=== PATIENT | female | born 1965 | race Caucasian/White ===

== ENCOUNTER 2023-10-21 13:01 | Emergency (ER) | payer BC, SELFPAY ==
[2023-10-21] VITALS (7 sets, daily range): BP systolic 111–127; BP diastolic 77–89; BMI 22.0
[2023-10-21 14:01] LABS: % Basophils 0.7 % (0-2); % Eosinophils 2.4 % (0-6); % Lymphocytes 32.7 % (20.5-51.1); % Monocytes 7.4 % (1.7-9.3); % Neutrophils 56.8 % (42.2-75.2); Absolute Eosinophils 0.1 10^3/uL (0-0.7); Absolute Lymphocytes 1.4 10^3/uL (1.2-3.4); Absolute Monocytes 0.3 10^3/uL (0.1-0.6); Absolute Neutrophils 2.4 10^3/uL (1.4-6.5); Hematocrit 38.8 % (37.0-47.0); Hemoglobin 13.2 g/dL (12.0-16.0); Mean Corpuscular Hgb 31.1 pg (27.0-31.0); Mean Corpuscular Volume 91.5 fL (81.0-99.0); Mean Platelet Volume 11.1 fL (7.4-10.4); Nucleated Red Blood Cells % 0 %; Platelet Count 243 10^3/uL (130-400); Red Blood Cell Count 4.24 10^6/uL (4.20-5.40); Red Cell Dist. Width 12.2 % (11.5-14.5); White Blood Cell Count 4.2 10^3/uL (4.8-10.8)
--- NOTE | 2023-10-21 14:07 | ED.GENMED ---
History of Present Illness
General
Chief Complaint: Dizziness
Source: patient
Time Seen by Provider: 10/21/23 13:58
Travel History
Have you had any contact with someone who has COVID-19?: No
Do you have any symptoms of coronavirus? Fever > 100 degrees, chills, cough, shortness of breath, sore throat, loss of taste or smell, muscle aches, or headache?: No
History of Present Illness
History of Present Illness:
49-year-old female presents to the emergency room complaining of an exacerbation of her vertigo. 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 Patient states that she has sought advice from multiple [facility] centers for her symptoms and has participated in clinical trials but has not found a solution to her problem. She typically treats her symptoms with Nurtec, oral Valium, magnesium but has not had adequate improvement in her
symptoms. She currently rates her symptoms out of 10. She feels a sense of movement that is not worse with change in head position. She denies actual headache. When she had exacerbation such as this in the past IV Valium and Benadryl has helped.
Past History
Past History
ED Past Medical History: Other (Vestibular migraines, GERD)
ED Past Surgical History: None
Patient has exhibited threatening behavior?: No
Social History
Tobacco: Non-smoker
Alcohol: Occasional
Drug: None
Personal:
Employment: Employed
Family History
Family History: Other
Phy Exam
Physical Exam
Physical Exam:
General: Awake, Alert, Oriented X3. No acute distress.
Vitals: unremarkable
Head: Atraumatic
Eyes: Pupils equal, EOMI
Throat: Airway intact, no exudates
Neck: Trachea midline
Lungs: Clear and equal b/l
Heart: Regular rate, no murmurs
Abd: Soft, Nontender, No pulsatile mass
Neuro: Nonfocal
Skin: Warm, dry, no rash
Extremities: pulses equal b/l, no edema
Course
Orders/Labs/Results
Orders:
Orders
10/21/23 13:48
CMP [Comprehensive Metabolic Panel] Urgent
Complete Blood Count/With Diff Urgent
10/21/23 14:04
Diphenhydramine [Benadryl] 25 mg IV NOW STA
diazePAM [Valium Injection] 5 mg IV NOW STA
10/21/23 14:18
0.9% Sodium Chloride 1000 ml [Nss] 1,000 ml IV BOLUS
Ketorolac [Toradol] 30 mg IV NOW STA
10/21/23 16:17
diazePAM [Valium Injection] 2 mg IV NOW STA
10/21/23 18:00
Diphenhydramine [Benadryl] 25 mg IV NOW STA
Prochlorperazine [Compazine] 10 mg IV NOW STA
Abnormal Lab Results
10/21/23
13:48
WBC 4.2 L 10^3/uL
(4.8-10.8)
MCH 31.1 H pg
(27.0-31.0)
MPV 11.1 H fL
(7.4-10.4)
BUN 18 H mg/dl
(7-17)
10/21/23 13:48
10/21/23 13:48
Vital Signs
Initial and Last Documented VS:
Initial Vital Signs
Temp Pulse Resp BP Pulse Ox
98.3 F 77 20 127/81 99
10/21/23 13:02 10/21/23 13:02 10/21/23 13:02 10/21/23 13:02 10/21/23 13:02
Last Documented Vital Signs
Temp Pulse Resp BP Pulse Ox
98.3 F 60 17 117/88 97
10/21/23 13:02 10/21/23 17:15 10/21/23 17:15 10/21/23 17:00 10/21/23 17:15
MDM/Problems Addressed
Differential Diagnosis Includes:
BPH, subarachnoid hemorrhage, labyrinthitis,
MDM/Problems Addressed:
Patient presents with headache, vertigo, subjective difficulty speaking. CT here shows no acute abnormalities. CT angiogram is essentially normal. Patient has labs which are reassuring. Patient treated with Valium for potential peripheral
vertigo. He felt much better. He is ambulatory and feels like he is speaking normally. He continues to have a mild headache but given his normal imaging I think this is likely more of a tension headache. Patient now stable for discharge home.
He will follow-up with ENT and physical therapy for vestibular therapy.
*Radiology
Radiology exam reviewed: radiology read reviewed
*Pulse Oximetry
Patient hypoxic: no
*Critical Care Note
Total Time (30-74mins, 75-104mins- exclusive of procedures): Not Applicable
ED Attending Note
-
Portions of this chart may have been created with voice recognition software.� Occasional wrong word or��sound alike� substitutions may have occurred due to the inherent limitations of voice recognition software.
Discharge Plan
Departure
Prescriptions:
No Action
diazepam 5 MG tablet
5 mg PO Q6HPRN PRN (Reason: vertigo)
Rx Instructions:
04/10/2023, patient filled this medication on 03/10/2023 for 100 tablets according to PDMP.
acetaminophen [Tylenol] 325 mg Tablet
975 mg PO DAILYPRN PRN (Reason: mild pain)
calcium carbonate [Calcium 600] 600 mg calcium (1,500 mg) Tablet
600 mg PO DAILY
ibuprofen [Advil] 200 mg Tablet
400 mg PO BIDPRN PRN (Reason: mild pain)
Hold Instructions: Resume on 04/30/23. until toradol finishes
vitamin B complex Tablet
1 tab PO DAILY
bisacodyl [Dulcolax (bisacodyl)] 5 mg Tablet,Delayed Release (Dr/Ec)
5 mg PO DAILYPRN PRN (Reason: constipation)
cholecalciferol (vitamin D3) 25 mcg (1,000 unit) Tablet
25 mcg PO DAILY
magnesium glycinate 100 mg Tablet
100 mg PO HS
omega 2-wpg-oee-fish oil [Fish Oil] 1,000 mg (120 mg-180 mg) Capsule
1 cap PO DAILY
coQ10 (ubiquinol) 100 mg Capsule
100 mg PO DAILY
Nurtec ODT 75 mg Tablet,Disintegrating
75 mg PO DAILY PRN (Reason: Pain) Qty: 0 0RF
prochlorperazine maleate [Compazine] 10 mg tablet
10 mg PO Q8H PRN (Reason: headache, nausea, vomiting) 7 Days Qty: 21 0RF
diphenhydramine HCl [Benadryl] 25 mg capsule
25 mg PO TID PRN (Reason: mod to severe headache, nausea) Qty: 21 0RF
ketorolac 10 mg tablet
10 mg PO TID PRN (Reason: moderate to severe headache) 5 Days Qty: 20 0RF
Rx Instructions:
hold ibuprofen or nsaids when taking this medication
Referrals:
Roma Sue CRNP [Family Provider] -
Interventions
Interventions:
*Risk Screen - Suicide Last Done: 10/21/23 13:02
*General Assessment Last Done: 10/21/23 13:02
*Neglect/Abuse Screening Last Done: 10/21/23 13:02
ED- Fall Risk Assessment Last Done: 10/21/23 15:00
*ED COVID-19 Vaccine History Last Done: 10/21/23 13:38
ED- Neurological Assessment Last Done: 10/21/23 15:00
ED- Cardiac Assessment Last Done: 10/21/23 15:01
ED Swallowing Screen Last Done: 10/21/23 16:25
Discharge Date and Time
Print Language: WOLOF
[2023-10-21] MEDS: VALIUM INJECTION 5 MG IV (14:10)
[2023-10-21] MEDS: BENADRYL 25 MG IV ×2 (14:10→18:25)
[2023-10-21 14:19] LABS: ALT (SGPT) 14 U/L (0-35); AST (SGOT) 26 U/L (14-36); Albumin 4.4 g/dl (3.5-5.0); Alkaline Phosphatase 55 U/L (38-126); Blood Urea Nitrogen 18 mg/dl (7-17); Calcium 9.8 mg/dl (8.4-10.2); Carbon Dioxide 28 mmol/L (22-30); Chloride 105 mmol/L (98-107); Estimated Creatinine Clearance 76 ml/min; Glucose 95 mg/dl (70-99); Sodium 138 mmol/L (135-145); Total Bilirubin 0.6 mg/dl (0.2-1.3); Total Protein 6.9 g/dl (6.3-8.2); eGFR > 60.00
[2023-10-21] MEDS: NSS 1000 IV (14:20)
[2023-10-21] MEDS: TORADOL 30 MG IV (14:21)
[2023-10-21] MEDS: VALIUM INJECTION 2 MG IV (16:29)
[2023-10-21] MEDS: COMPAZINE 10 MG IV (18:25)
--- NOTE | 2023-10-21 19:27 | ED.GENMED ---
History of Present Illness
General
Chief Complaint: Dizziness
Time Seen by Provider: 10/21/23 13:58
Travel History
Have you had any contact with someone who has COVID-19?: No
Do you have any symptoms of coronavirus? Fever > 100 degrees, chills, cough, shortness of breath, sore throat, loss of taste or smell, muscle aches, or headache?: No
Past History
Past History
ED Past Medical History: Other (Vestibular migraines, GERD)
ED Past Surgical History: None
Patient has exhibited threatening behavior?: No
Social History
Tobacco: Non-smoker
Alcohol: Occasional
Drug: None
Personal:
Employment: Employed
Family History
Family History: Other
Course
Orders/Labs/Results
Orders:
Orders
10/21/23 13:48
CMP [Comprehensive Metabolic Panel] Urgent
Complete Blood Count/With Diff Urgent
10/21/23 14:04
Diphenhydramine [Benadryl] 25 mg IV NOW STA
diazePAM [Valium Injection] 5 mg IV NOW STA
10/21/23 14:18
0.9% Sodium Chloride 1000 ml [Nss] 1,000 ml IV BOLUS
Ketorolac [Toradol] 30 mg IV NOW STA
10/21/23 16:17
diazePAM [Valium Injection] 2 mg IV NOW STA
10/21/23 18:00
Diphenhydramine [Benadryl] 25 mg IV NOW STA
Prochlorperazine [Compazine] 10 mg IV NOW STA
Abnormal Lab Results
10/21/23
13:48
WBC 4.2 L 10^3/uL
(4.8-10.8)
MCH 31.1 H pg
(27.0-31.0)
MPV 11.1 H fL
(7.4-10.4)
BUN 18 H mg/dl
(7-17)
10/21/23 13:48
10/21/23 13:48
Vital Signs
Initial and Last Documented VS:
Initial Vital Signs
Temp Pulse Resp BP Pulse Ox
98.3 F 77 20 127/81 99
10/21/23 13:02 10/21/23 13:02 10/21/23 13:02 10/21/23 13:02 10/21/23 13:02
Last Documented Vital Signs
Temp Pulse Resp BP Pulse Ox
98.3 F 60 17 117/88 97
10/21/23 13:02 10/21/23 17:15 10/21/23 17:15 10/21/23 17:00 10/21/23 17:15
ED Attending Note
-
Portions of this chart may have been created with voice recognition software.� Occasional wrong word or��sound alike� substitutions may have occurred due to the inherent limitations of voice recognition software.
Discharge Plan
Departure
Patient Disposition: Home (Routine Discharge)
Date of Disposition: 10/21/23
Time of Disposition: 19:27
Patient with high blood pressure during this ER visit?: No
Condition: Good
Discharge Problem:
Mal de debarquement
Instructions: Vertigo (a Type of Dizziness) (DC), BLOOD PRESSURE
Prescriptions:
No Action
diazepam 5 MG tablet
5 mg PO Q6HPRN PRN (Reason: vertigo)
Rx Instructions:
04/10/2023, patient filled this medication on 03/10/2023 for 100 tablets according to PDMP.
acetaminophen [Tylenol] 325 mg Tablet
975 mg PO DAILYPRN PRN (Reason: mild pain)
calcium carbonate [Calcium 600] 600 mg calcium (1,500 mg) Tablet
600 mg PO DAILY
ibuprofen [Advil] 200 mg Tablet
400 mg PO BIDPRN PRN (Reason: mild pain)
Hold Instructions: Resume on 04/30/23. until toradol finishes
vitamin B complex Tablet
1 tab PO DAILY
bisacodyl [Dulcolax (bisacodyl)] 5 mg Tablet,Delayed Release (Dr/Ec)
5 mg PO DAILYPRN PRN (Reason: constipation)
cholecalciferol (vitamin D3) 25 mcg (1,000 unit) Tablet
25 mcg PO DAILY
magnesium glycinate 100 mg Tablet
100 mg PO HS
omega 4-ejv-wdm-fish oil [Fish Oil] 1,000 mg (120 mg-180 mg) Capsule
1 cap PO DAILY
coQ10 (ubiquinol) 100 mg Capsule
100 mg PO DAILY
Nurtec ODT 75 mg Tablet,Disintegrating
75 mg PO DAILY PRN (Reason: Pain) Qty: 0 0RF
prochlorperazine maleate [Compazine] 10 mg tablet
10 mg PO Q8H PRN (Reason: headache, nausea, vomiting) 7 Days Qty: 21 0RF
diphenhydramine HCl [Benadryl] 25 mg capsule
25 mg PO TID PRN (Reason: mod to severe headache, nausea) Qty: 21 0RF
ketorolac 10 mg tablet
10 mg PO TID PRN (Reason: moderate to severe headache) 5 Days Qty: 20 0RF
Rx Instructions:
hold ibuprofen or nsaids when taking this medication
Referrals:
Roma Sue CRNP [Family Provider] -
Interventions
Interventions:
*Risk Screen - Suicide Last Done: 10/21/23 13:02
*General Assessment Last Done: 10/21/23 13:02
*Neglect/Abuse Screening Last Done: 10/21/23 13:02
ED- Fall Risk Assessment Last Done: 10/21/23 15:00
*ED COVID-19 Vaccine History Last Done: 10/21/23 13:38
ED- Neurological Assessment Last Done: 10/21/23 15:00
ED- Cardiac Assessment Last Done: 10/21/23 15:01
ED Swallowing Screen Last Done: 10/21/23 16:25
Discharge Date and Time
Print Language: LITHUANIAN
== END 2023-10-21 19:41 | disposition home or self-care (01) ==
LOC: EMR 13:01
PROVIDERS: EMERGENCY PHYSICIAN Emergency Medicine; FAMILY PHYSICIAN Nurse Practitioner
DX: R42 Dizziness and giddiness (principal)
CPT/HCPCS: 99284; 96374; 96375 ×3; 96376 ×2; 96361; 80053; 85025

== ENCOUNTER → 2024-02-23 15:33 | Outpatient (REF) | payer BC, SELFPAY | LOC: HWRAD 15:33 | PROVIDERS: ATTENDING PHYSICIAN Otolaryngology Otolaryngology/Facial Plastic Surgery; FAMILY PHYSICIAN Nurse Practitioner | DX: J32.9 Chronic sinusitis, unspecified (principal) | CPT/HCPCS: 70486 ==

== ENCOUNTER → 2024-04-15 17:51 | Outpatient (REF) | payer BC, SELFPAY | LOC: WDC 17:51 | PROVIDERS: ATTENDING PHYSICIAN Nurse Practitioner; FAMILY PHYSICIAN Nurse Practitioner Gerontology | DX: Z12.31 Encounter for screening mammogram for malignant neoplasm of breast (principal) | CPT/HCPCS: 77063; 77067 ==

== ENCOUNTER 2024-05-11 11:07 | Emergency (ER) | payer BC, SELFPAY ==
[2024-05-11 11:14] VITALS: BP 146/84
[2024-05-11 11:37] LABS: % Basophils 0.5 % (0-2); % Eosinophils 2.2 % (0-6); % Immature Granulocytes 0.3 % (0-0.5); % Monocytes 6.5 % (1.7-9.3); % Neutrophils 61.5 % (42.2-75.2); Absolute Eosinophils 0.1 10^3/uL (0-0.7); Absolute Lymphocytes 1.7 10^3/uL (1.2-3.4); Absolute Monocytes 0.4 10^3/uL (0.1-0.6); Absolute Neutrophils 3.7 10^3/uL (1.4-6.5); Hematocrit 41.9 % (37.0-47.0); Hemoglobin 13.9 g/dL (12.0-16.0); Mean Corp Hgb Conc. 33.2 g/dL (33.0-37.0); Mean Corpuscular Volume 93.5 fL (81.0-99.0); Mean Platelet Volume 10.4 fL (7.4-10.4); Nucleated Red Blood Cells % 0 %; Platelet Count 277 10^3/uL (130-400); Red Blood Cell Count 4.48 10^6/uL (4.20-5.40); Red Cell Dist. Width 11.8 % (11.5-14.5)
[2024-05-11 11:47] LABS: ALT (SGPT) 15 U/L (0-35); AST (SGOT) 29 U/L (14-36); Albumin 4.5 g/dl (3.5-5.0); Alkaline Phosphatase 63 U/L (38-126); Blood Urea Nitrogen 14 mg/dl (7-17); Calcium 9.6 mg/dl (8.4-10.2); Carbon Dioxide 32 mmol/L (22-30); Chloride 101 mmol/L (98-107); Glucose 100 mg/dl (70-99); Potassium 4.6 mmol/L (3.5-5.1); Sodium 138 mmol/L (135-145); Total Bilirubin 0.6 mg/dl (0.2-1.3); eGFR > 60.00
[2024-05-11 11:55] LABS: COVID-19 Antigen Negative (Negative)
[2024-05-11 11:57] LABS: Troponin I 0.014 ng/ml
[2024-05-11 13:18] VITALS: BP 137/82
--- NOTE | 2024-05-11 14:08 | ED.GENMED ---
History of Present Illness
<Eva Damian PA-C - Last Filed: 05/11/24 19:04>
General
Chief Complaint: Chest Pain
Source: patient
Exam Limitations: none
Time Seen by Provider: 05/11/24 13:33
Nursing documentation reviewed up to this point in time: agreed with
History of Present Illness
History of Present Illness:
58-year-old female with a past medical history of migraines, GERD, presents emergency department today with concerns of chest pain. Patient states that she has been having intermittent chest pain for the past 4 days. She has had upper respiratory
symptoms associated with this. Patient states that she had been seen by [facility] for her sore throat and generalized URI symptoms and was told it was a viral infection. Patient states that she started develop a lot of coughing and started
develop chest pain after that, patient states that she believes that the chest pain may be related to all the coughing she has been doing and went to make sure she has not any pneumonia. Patient states that she has not been coughing up mucus,
denies any hemoptysis. Patient denies any recent long distance travel, any swelling in her legs. Patient states that she does have a history of acid reflux and states that her symptoms have been well-controlled for many years so she stopped taking
omeprazole however the episodes of chest pain that she has been having do feel similar to her reflux.
Past History
<Eva Damian PA-C - Last Filed: 05/11/24 19:04>
Past History
ED Past Medical History: Other (Vestibular migraines, GERD)
ED Past Surgical History: None
Patient has exhibited threatening behavior?: No
Social History
Tobacco: Non-smoker
Alcohol: Occasional
Drug: None
Personal:
Employment: Employed
Family History
Family History: Other
Review of Systems
<Eva Damian PA-C - Last Filed: 05/11/24 19:04>
Review of Systems
All Other Systems: ROS reviewed and negative except as documented in HPI and ROS
Phy Exam
<Eva Damian PA-C - Last Filed: 05/11/24 19:04>
Physical Exam
Physical Exam:
General: Patient is well appearing and in no acute distress; non-toxic
Skin: Warm and dry, no rashes or lesions
Head: Normocephalic, atraumatic
Eyes: Sclera non-icteric. EOMs intact. PERRLA.
Cardiac: Regular rate and rhythm, no murmurs, no tenderness to palpation of the external chest wall
Peripheral Vascular: No lower extremity swelling or edema, 2+ dorsalis pedis and posterior tibial pulses bilaterally
Pulm: Normal respiratory effort, no wheezes, rales, or rhonchi
Neuro: CN II-XII intact, no focal neurologic deficits.
Psychiatric: Appropriate mood and affect.
Scores
<Eva Damian PA-C - Last Filed: 05/11/24 19:04>
Heart Score for Chest Pain Patients
STEMI patient?: No
History: Slightly or Non-Suspicious
ECG: Normal
Age: >45 - <65 years
Risk Factors: 1 or 2 Risk Factors
Troponin: </= Normal Limit
Heart Score for Chest Pain Patients: 2
Heart Score Risk: 2.5% MACE over next 6 weeks
Course
<Eva Damian PA-C - Last Filed: 05/11/24 19:04>
Orders/Labs/Results
Orders:
Orders
05/11/24 11:08
Electrocardiogram (*1) Urgent
Reason for Study: Chest Pain
EKG- Treatment ONCE
05/11/24 11:18
CR Chest - 2 Views Urgent
Comment:
Reason For Exam: cough
05/11/24 11:22
COVID-19 Antigen Urgent
Source: Nasal Swab
Complete Blood Count/With Diff Urgent
Comprehensive Metabolic Panel Urgent
Troponin I Urgent
Influenza A+B Rapid Molecular Urgent
ASHER Source: Nasal Swab
Specimen Description:
05/11/24 14:23
Famotidine [Pepcid] 40 mg PO NOW STA
Pantoprazole [Protonix] 40 mg PO NOW STA
05/11/24 14:46
Mag Hydrox/Al Hydrox/Simeth [Maalox] 30 ml Phenobarb/Hyoscy/Atropine/Scop [] 10 ml PO NOW
05/11/24 15:06
Mag Hydrox/Al Hydrox/Simeth [Maalox] 30 ml .ROUTE .STK-MED ONE
Phenobarb/Hyoscy/Atropine/Scop [] 10 ml .ROUTE .STK-MED ONE
Abnormal Lab Results
05/11/24
11:22
Carbon Dioxide 32 H mmol/L
(22-30)
Glucose 100 H mg/dl
(70-99)
05/11/24 11:22
05/11/24 11:22
Vital Signs
Initial and Last Documented VS:
Initial Vital Signs
Temp Pulse Resp BP Pulse Ox
98.2 F 68 16 146/84 100
05/11/24 11:14 05/11/24 11:14 05/11/24 11:14 05/11/24 11:14 05/11/24 11:14
Last Documented Vital Signs
Temp Pulse Resp BP Pulse Ox
98.6 F 70 17 137/82 100
05/11/24 13:18 05/11/24 14:15 05/11/24 14:15 05/11/24 13:18 05/11/24 14:15
<Lyndon Garsia, DO - Last Filed: 05/11/24 14:44>
Orders/Labs/Results
Orders:
Orders
05/11/24 11:08
Electrocardiogram (*1) Urgent
Reason for Study: Chest Pain
EKG- Treatment ONCE
05/11/24 11:18
CR Chest - 2 Views Urgent
Comment:
Reason For Exam: cough
05/11/24 11:22
COVID-19 Antigen Urgent
Source: Nasal Swab
Complete Blood Count/With Diff Urgent
Comprehensive Metabolic Panel Urgent
Troponin I Urgent
Influenza A+B Rapid Molecular Urgent
ASHER Source: Nasal Swab
Specimen Description:
05/11/24 14:23
Famotidine [Pepcid] 40 mg PO NOW STA
Pantoprazole [Protonix] 40 mg PO NOW STA
05/11/24 14:46
Mag Hydrox/Al Hydrox/Simeth [Maalox] 30 ml Phenobarb/Hyoscy/Atropine/Scop [] 10 ml PO NOW
05/11/24 15:06
Mag Hydrox/Al Hydrox/Simeth [Maalox] 30 ml .ROUTE .STK-MED ONE
Phenobarb/Hyoscy/Atropine/Scop [] 10 ml .ROUTE .STK-MED ONE
Abnormal Lab Results
05/11/24
11:22
Carbon Dioxide 32 H mmol/L
(22-30)
Glucose 100 H mg/dl
(70-99)
05/11/24 11:22
05/11/24 11:22
Vital Signs
Initial and Last Documented VS:
Initial Vital Signs
Temp Pulse Resp BP Pulse Ox
98.2 F 68 16 146/84 100
05/11/24 11:14 05/11/24 11:14 05/11/24 11:14 05/11/24 11:14 05/11/24 11:14
Last Documented Vital Signs
Temp Pulse Resp BP Pulse Ox
98.6 F 70 17 137/82 100
05/11/24 13:18 05/11/24 14:15 05/11/24 14:15 05/11/24 13:18 05/11/24 14:15
Shreyalt;Eva Damian PA-C - Last Filed: 05/11/24 19:04>
MDM/Problems Addressed
Differential Diagnosis Includes:
see below
MDM/Problems Addressed:
NUMBER AND COMPLEXITY OF PROBLEMS ADDRESSED AT THE ENCOUNTER
� Chronic conditions affecting care: Migraines, GERD
� Acute Exacerbation and/or Progression of Chronic Illness:
� Differential Diagnosis includes: Passive chondritis, GERD, ACS, PE
AMOUNT AND/OR COMPLEXITY OF DATA TO BE REVIEWED AND ANALYZED
� I performed an independent evaluation of and my interpretation is:
EKG: Normal sinus rhythm 60 with no ischemic changes.
X-rays: no evidence of pneumonia or bronchitis
Laboratory Studies: COVID negative, CBC and CMP unremarkable
Other:
� Review of other/old records: Reviewed most recent ER physician documentation from 10/21/2023, patient seen for exacerbation of her vertigo
� Clinical information was obtained by an independent historian: present with patient
� Prescriptions/Medications Considered but not given: n/a
� Further testing considered but not performed: considered d-dimer however patient has no DVT risk factors, is not tachycardic, not hypoxic
RISK OF COMPLICATIONS AND/OR MORBIDITY OR MORTALITY OF PATIENT MANAGEMENT
� Social determinants of health affecting care: none
� Discussion with other providers: ER attending
� Escalation of care including admission/observation vs risk of discharge considered:
58 y/o female with PMH of maldebarqument syndrome, vestibular migraines, presents to the emergency department today with concerns of chest pain with associated URI symptoms. Patient states that the pain she is having feels like when she had GERD in
the past. Patient states that she was going to initiate omeprazole but wanted to be evaluated first. Her CBC and CMP are unremarkable. COVID negative. CXR negative for pneumonia, suspect pain from coughing from bronchitis vs GERD. Will restart
patient on omeprazole and have her follow up with her PCP. Patient stable for discharge.
<Eva Damian PA-C - Last Filed: 05/11/24 19:04>
*Critical Care Note
Total Time (30-74mins, 75-104mins- exclusive of procedures): Not Applicable
ED Attending Note
<Eva Damian PA-C - Last Filed: 05/11/24 19:04>
-
Portions of this chart may have been created with voice recognition software.� Occasional wrong word or��sound alike� substitutions may have occurred due to the inherent limitations of voice recognition software.
<Lyndon Garsia DO - Last Filed: 05/11/24 14:44>
ED Attending Note
Patient seen and examined by attending physician: Yes
I performed a history and physical exam of patient and discussed management with resident, I reviewed resident's note and agree with documented findings and plan of care.: Yes
ED Attending Note:
Seen with PA examined independently agree with assessment and plan nontoxic female with a few weeks of chest pain after coughing workup unremarkable tells me it reminds her of her reflux
Discharge Plan
Departure
Patient Disposition: Home (Routine Discharge)
Date of Disposition: 05/11/24
Time of Disposition: 14:51
Patient with high blood pressure during this ER visit?: Yes
Condition: Good
Discharge Problem:
Chest pain
Instructions: Acid reflux and GERD in adults, Chest pain - Discharge instructions, BLOOD PRESSURE
Prescriptions:
New
omeprazole 20 mg capsule,delayed release(DR/EC)
20 mg PO DAILY 14 Days Qty: 14 0RF
No Action
diazepam 5 MG tablet
5 mg PO Q6HPRN PRN (Reason: vertigo)
Rx Instructions:
04/10/2023, patient filled this medication on 03/10/2023 for 100 tablets according to PDMP.
acetaminophen [Tylenol] 325 mg Tablet
975 mg PO DAILYPRN PRN (Reason: mild pain)
calcium carbonate [Calcium 600] 600 mg calcium (1,500 mg) Tablet
600 mg PO DAILY
ibuprofen [Advil] 200 mg Tablet
400 mg PO BIDPRN PRN (Reason: mild pain)
vitamin B complex Tablet
1 tab PO DAILY
bisacodyl [Dulcolax (bisacodyl)] 5 mg Tablet,Delayed Release (Dr/Ec)
5 mg PO DAILYPRN PRN (Reason: constipation)
cholecalciferol (vitamin D3) 25 mcg (1,000 unit) Tablet
25 mcg PO DAILY
magnesium glycinate 100 mg Tablet
100 mg PO HS
omega 1-eyb-ahj-fish oil [Fish Oil] 1,000 mg (120 mg-180 mg) Capsule
1 cap PO DAILY
coQ10 (ubiquinol) 100 mg Capsule
100 mg PO DAILY
Nurtec ODT 75 mg Tablet,Disintegrating
75 mg PO DAILY PRN (Reason: Pain) Qty: 0 0RF
prochlorperazine maleate [Compazine] 10 mg tablet
10 mg PO Q8H PRN (Reason: headache, nausea, vomiting) 7 Days Qty: 21 0RF
diphenhydramine HCl [Benadryl] 25 mg capsule
25 mg PO TID PRN (Reason: mod to severe headache, nausea) Qty: 21 0RF
ketorolac 10 mg tablet
10 mg PO TID PRN (Reason: moderate to severe headache) 5 Days Qty: 20 0RF
Rx Instructions:
hold ibuprofen or nsaids when taking this medication
Referrals:
Roma Sue CRNP [Family Provider] -
Activity Restrictions/Additional Instructions:
Omeprazole has been sent to your pharmacy. You can take one tablet once daily for a 2 week trial.
PLEASE RETURN TO THE EMERGENCY DEPARTMENT SHOULD YOU EXPERIENCE ANY ACUTE WORSENING OF YOUR SYMPTOMS, SHORTNESS OF BREATH, INTRACTABLE NAUSEA OR VOMITING, FEVERS OR CHILLS, WEAKNESS IN ONE-SIDED BODY VERSUS OTHER, CONFUSION, DIFFICULTY SPEAKING, ANY
OTHER SIGNS OR SYMPTOMS CONCERNING TO YOU.
Please follow-up with your PCP as scheduled on May 18.
Interventions
Interventions:
*Risk Screen - Suicide Last Done: 05/11/24 14:04
*General Assessment Last Done: 05/11/24 14:04
*Neglect/Abuse Screening Last Done: 05/11/24 14:04
ED- Fall Risk Assessment Last Done: 05/11/24 15:46
*Nursing Disposition Last Done: 05/11/24 15:46
ED- Cardiac Assessment Last Done: 05/11/24 14:04
Discharge Date and Time
Discharge Date/Time: 05/11/24 15:47
Print Language: NIGERIAN
[2024-05-11] MEDS: PROTONIX 40 MG PO (14:34)
[2024-05-11] MEDS: PEPCID 40 MG PO (14:34)
[2024-05-11] MEDS: MAALOX 40 PO (15:07)
== END 2024-05-11 15:47 | disposition home or self-care (01) ==
LOC: EMR 11:07
PROVIDERS: Emergency Medicine; EMERGENCY PHYSICIAN Emergency Medicine; FAMILY PHYSICIAN Nurse Practitioner
DX: R07.89 Other chest pain (principal); K21.9 Gastro-esophageal reflux disease without esophagitis; R07.9 Chest pain, unspecified
CPT/HCPCS: 99285; 71046; 80053; 84484; 85025; 87502; 87811; 93005

== ENCOUNTER 2024-09-27 06:17 | Day surgery (SDC) | payer BC, SELFPAY | END 2024-09-27 11:01 | disposition home or self-care (01) | LOC: GI 06:17 | PROVIDERS: ATTENDING PHYSICIAN Internal Medicine Gastroenterology | DX: Z12.11 Encounter for screening for malignant neoplasm of colon (principal); Z86.0101 Personal history of adenomatous and serrated colon polyps; K57.30 Diverticulosis of large intestine without perforation or abscess without bleeding; Z98.890 Other specified postprocedural states | CPT/HCPCS: G0105 ==

== ENCOUNTER 2024-10-13 10:04 | Emergency (ER) | payer BC, SELFPAY ==
[2024-10-13 10:12] VITALS: BP 133/79
[2024-10-13 10:39] VITALS: BP 108/79
--- NOTE | 2024-10-13 10:48 | ED.GENMED ---
History of Present Illness
General
Chief Complaint: Dizziness
Source: patient
Exam Limitations: none
Time Seen by Provider: 10/13/24 10:18
Nursing documentation reviewed up to this point in time: agreed with
History of Present Illness
History of Present Illness:
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
today so far. She claims this feels very similar to previous vestibular symptoms associated with her chronic condition. Denies any new symptoms no additional numbness weakness neck pain fevers or recent illnesses.
Past History
Past History
ED Past Medical History: Other (Vestibular migraines, GERD)
ED Past Surgical History: None
Patient has exhibited threatening behavior?: No
Social History
Tobacco: Non-smoker
Alcohol: Occasional
Drug: None
Personal:
Employment: Employed
Family History
Family History: Other
Review of Systems
Review of Systems
Allergies reviewed?: Yes
All Other Systems: ROS reviewed and negative except as documented in HPI and ROS
Phy Exam
Physical Exam
Physical Exam:
GENERAL: Alert , in no apparent distress
EYE: pupils equal and reactive
NECK: Supple, no significant adenopathy.
ENT: o/p clr, mmm.
CARDIAC: Regular rate and rhythm .
LUNGS: Clear breath sounds bilaterally, no acute respiratory distress, no wheezes/rales/rhonchi
ABDOMEN: Soft, without focal tenderness, no r/g, no cvat
NEUROLOGICAL: Alert and oriented, no focal neuro deficits
SKIN: Warm and dry, skin intact.
MUSCULOSKELETAL: No edema, well perfused.
PSYCH: Normal and appropriate interaction.
Course
Orders/Labs/Results
Orders:
Orders
10/13/24 10:32
0.9% Sodium Chloride 1000 ml [Nss] 1,000 ml IV BOLUS
Dexamethasone Sod Phosphate [Decadron] 10 mg IV NOW STA
Diphenhydramine [Benadryl] 25 mg IV NOW STA
Ketorolac [Toradol] 15 mg IV NOW STA
Metoclopramide [Reglan] 10 mg IV NOW STA
10/13/24 11:01
Complete Blood Count/With Diff Urgent
Comprehensive Metabolic Panel Urgent
10/13/24 12:58
diazePAM [Valium Injection] 5 mg IV NOW STA
10/13/24 15:49
Acetaminophen [Tylenol] 1,000 mg PO NOW STA
Abnormal Lab Results
10/13/24
11:01
RBC 4.05 L 10^6/uL
(4.20-5.40)
MCH 31.1 H pg
(27.0-31.0)
MPV 11.4 H fL
(7.4-10.4)
Chloride 108 H mmol/L
(98-107)
Creatinine 1.2 H mg/dL
(0.6-1.0)
10/13/24 11:01
10/13/24 11:01
Vital Signs
Initial and Last Documented VS:
Initial Vital Signs
Temp Pulse Resp BP Pulse Ox
98.4 F 82 16 133/79 98
10/13/24 10:12 10/13/24 10:12 10/13/24 10:12 10/13/24 10:12 10/13/24 10:12
Last Documented Vital Signs
Temp Pulse Resp BP Pulse Ox
98.4 F 82 16 108/79 98
10/13/24 10:12 10/13/24 10:12 10/13/24 10:12 10/13/24 10:39 10/13/24 10:45
MDM/Problems Addressed
MDM/Problems Addressed:
58-year-old female presenting to the emergency department today with concern of ongoing symptoms of vertigo. She believes is secondary to her chronic condition. Your vital signs are normal patient with normal neurologic evaluation. No significant
nystagmus. Patient given multiple medications with some improvement of symptoms. In no distress throughout ER stay normal vital signs. Advised for close outpatient follow-up with neurology. Return precautions given.
*Critical Care Note
Total Time (30-74mins, 75-104mins- exclusive of procedures): Not Applicable
ED Attending Note
-
Portions of this chart may have been created with voice recognition software.� Occasional wrong word or��sound alike� substitutions may have occurred due to the inherent limitations of voice recognition software.
Discharge Plan
Departure
Patient Disposition: Home (Routine Discharge)
Date of Disposition: 10/13/24
Time of Disposition: 16:02
Patient with high blood pressure during this ER visit?: No
Condition: Good
Covid-19: Not Applicable
Discharge Problem:
Vertigo
Instructions: Vertigo (a Type of Dizziness) (DC)
Prescriptions:
New
acetaminophen 500 mg capsule
500 mg PO Q6H PRN (Reason: Pain) Qty: 14 0RF
diazepam [Valium] 5 mg tablet
5 mg PO BID PRN (Reason: Sleep) Qty: 10 0RF
methylprednisolone [Medrol (Martinez)] 4 mg tablets,dose pack
See Rx Instructions .ROUTE .COMPLEX Qty: 21 0RF
Rx Instructions:
for 6 days
No Action
diazepam 5 MG tablet
5 mg PO Q6HPRN PRN (Reason: vertigo)
Rx Instructions:
04/10/2023, patient filled this medication on 03/10/2023 for 100 tablets according to PDMP.
acetaminophen [Tylenol] 325 mg Tablet
975 mg PO DAILYPRN PRN (Reason: mild pain)
calcium carbonate [Calcium 600] 600 mg calcium (1,500 mg) Tablet
600 mg PO DAILY
ibuprofen [Advil] 200 mg Tablet
400 mg PO BIDPRN PRN (Reason: mild pain)
vitamin B complex Tablet
1 tab PO DAILY
bisacodyl [Dulcolax (bisacodyl)] 5 mg Tablet,Delayed Release (Dr/Ec)
5 mg PO DAILYPRN PRN (Reason: constipation)
cholecalciferol (vitamin D3) 25 mcg (1,000 unit) Tablet
25 mcg PO DAILY
magnesium glycinate 100 mg Tablet
100 mg PO HS
omega 2-ziw-iyn-fish oil [Fish Oil] 1,000 mg (120 mg-180 mg) Capsule
1 cap PO DAILY
coQ10 (ubiquinol) 100 mg Capsule
100 mg PO DAILY
Nurtec ODT 75 mg Tablet,Disintegrating
75 mg PO DAILY PRN (Reason: Pain) Qty: 0 0RF
prochlorperazine maleate [Compazine] 10 mg tablet
10 mg PO Q8H PRN (Reason: headache, nausea, vomiting) 7 Days Qty: 21 0RF
diphenhydramine HCl [Benadryl] 25 mg capsule
25 mg PO TID PRN (Reason: mod to severe headache, nausea) Qty: 21 0RF
ketorolac 10 mg tablet
10 mg PO TID PRN (Reason: moderate to severe headache) 5 Days Qty: 20 0RF
Rx Instructions:
hold ibuprofen or nsaids when taking this medication
omeprazole 20 mg capsule,delayed release(DR/EC)
20 mg PO DAILY 14 Days Qty: 14 0RF
Referrals:
Roma Sue CRNP [Family Provider, General]
Activity Restrictions/Additional Instructions:
You came to the emergency department today with concerns of vertigo and migraine. Here you had multiple medications. Please follow closely with your neurologist. Return for any worsening, new or concerning symptoms.
Interventions
Interventions:
*Nursing Disposition Last Done: 10/13/24 16:05
ED- Neurological Assessment Last Done: 10/13/24 11:07
ED- Cardiac Assessment Last Done: 10/13/24 11:26
ED Swallowing Screen Last Done: 10/13/24 11:26
Discharge Date and Time
Print Language: MOROCCAN
[2024-10-13] MEDS: NSS 1000 IV (10:56)
[2024-10-13] MEDS: DECADRON 10 MG IV (10:57)
[2024-10-13] MEDS: BENADRYL 25 MG IV (10:57)
[2024-10-13] MEDS: REGLAN 10 MG IV (10:57)
[2024-10-13] MEDS: TORADOL 15 MG IV (10:58)
[2024-10-13 11:11] LABS: % Basophils 0.8 % (0-2); % Eosinophils 2.1 % (0-6); % Immature Granulocytes 0.2 % (0-0.5); % Lymphocytes 28.9 % (20.5-51.1); % Monocytes 5.5 % (1.7-9.3); % Neutrophils 62.5 % (42.2-75.2); Absolute Eosinophils 0.1 10^3/uL (0-0.7); Absolute Lymphocytes 1.5 10^3/uL (1.2-3.4); Absolute Monocytes 0.3 10^3/uL (0.1-0.6); Absolute Neutrophils 3.3 10^3/uL (1.4-6.5); Hemoglobin 12.6 g/dL (12.0-16.0); Mean Corp Hgb Conc. 33.2 g/dL (33.0-37.0); Mean Corpuscular Hgb 31.1 pg (27.0-31.0); Mean Corpuscular Volume 93.8 fL (81.0-99.0); Mean Platelet Volume 11.4 fL (7.4-10.4); Nucleated Red Blood Cells % 0 %; Platelet Count 197 10^3/uL (130-400); Red Blood Cell Count 4.05 10^6/uL (4.20-5.40); Red Cell Dist. Width 11.8 % (11.5-14.5); White Blood Cell Count 5.3 10^3/uL (4.8-10.8)
[2024-10-13 11:41] LABS: ALT (SGPT) 15 U/L (0-35); AST (SGOT) 25 U/L (14-36); Albumin 4.7 g/dl (3.5-5.0); Alkaline Phosphatase 46 U/L (38-126); Blood Urea Nitrogen 15 mg/dl (7-17); Calcium 9.4 mg/dl (8.4-10.2); Carbon Dioxide 26 mmol/L (22-30); Chloride 108 mmol/L (98-107); Glucose 93 mg/dl (70-99); Potassium 4.2 mmol/L (3.5-5.1); Sodium 141 mmol/L (135-145); Total Bilirubin 0.6 mg/dl (0.2-1.3); Total Protein 6.9 g/dl (6.3-8.2)
[2024-10-13 12:00] VITALS: BP 107/70
[2024-10-13 12:16] LABS: eGFR 52.14
[2024-10-13 13:00] VITALS: BP 106/71
[2024-10-13] MEDS: VALIUM INJECTION 5 MG IV (13:06)
[2024-10-13] MEDS: TYLENOL 1000 MG PO (16:00)
[2024-10-13 16:22] VITALS: BP 112/70
== END 2024-10-13 17:18 | disposition home or self-care (01) ==
LOC: EMR 10:04
PROVIDERS: Physician Assistant; EMERGENCY PHYSICIAN Emergency Medicine; FAMILY PHYSICIAN Nurse Practitioner
DX: R42 Dizziness and giddiness (principal)
CPT/HCPCS: 99283; 96374; 96375; 96361; 80053; 85025

== ENCOUNTER 2024-10-21 08:19 | Emergency (ER) | payer BC, SELFPAY ==
[2024-10-21] VITALS (7 sets, daily range): BP systolic 96–109; BP diastolic 65–81
--- NOTE | 2024-10-21 08:46 | ED.GENMED ---
History of Present Illness
General
Chief Complaint: Headache
Source: patient
Exam Limitations: none
Time Seen by Provider: 10/21/24 08:32
Nursing documentation reviewed up to this point in time: agreed with
History of Present Illness
History of Present Illness:
The patient is a 58-year-old female with a longstanding history of vestibular migraines and MalDebarqument syndrome who presents to the emergency department today with dizziness and headache. She reports that the episode has been ongoing since
around , describing it as 'coming and going' but notably present since last week. These episodes have been recurrent for the past 19 years, with variability in frequency and intensity; sometimes occurring daily and other times
abating for a week.
She noted that the dizziness feels like the room is spinning. Symptoms are worse with movement of her head. She also describes a headache that seems to wrap around her forehead. She is taking Valium at varying dosages, typically around 5 mg two to
three times daily, and sometimes requires it daily for symptom relief. She has attempted managing episodes at home with her usual interventions, which have been unsuccessful this time around.
The patient has described the symptoms as very typical for her condition. She denies any recent fever, vomiting, numbness/tingling in extremities, visual changes. Patient denies any ataxia, diplopia, dysarthria, dysphagia.
Patient was seen in the emergency department about 1 week ago for similar symptoms however headache/dizziness has persisted.
Past History
Past History
ED Past Medical History: Other (Vestibular migraines, GERD)
ED Past Surgical History: None
Patient has exhibited threatening behavior?: No
Social History
Tobacco: Non-smoker
Alcohol: Occasional
Drug: None
Personal:
Employment: Employed
Family History
Family History: Other
Review of Systems
Review of Systems
Allergies reviewed?: Yes
All Other Systems: ROS reviewed and negative except as documented in HPI and ROS
Phy Exam
Physical Exam
Physical Exam:
Vitals: Patient's vital signs are stable. Afebrile
General: Patient is well appearing, no acute distress
Skin: Warm and dry, no rashes or lesions
Head: Normocephalic, atraumatic
Eyes: Sclera nonicteric. EOMs intact. Leftward beating nystagmus.
Throat: Protecting airway
Neck: Normal ROM, no cervical spine tenderness, no meningismus
Cardiac: Regular rate and rhythm, no murmurs.
Pulm: Normal respiratory effort, no wheezes, rales, rhonchi heard on exam
.
Abdomen: No abdominal tenderness.
Extremities: No evidence of cyanosis or edema
Neuro: AAOx3. CN II-XII grossly intact on examination. Normal finger-nose. Fluid speech. No focal neurologic deficits.
Psychiatric: Normal affect.
Course
Orders/Labs/Results
Orders:
Orders
10/21/24 08:48
Electrocardiogram (*1) Urgent
Reason for Study: Vertigo / Dizzy
EKG- Treatment ONCE
0.9% Sodium Chloride 1000 ml [Nss] 1,000 ml IV BOLUS
Diphenhydramine [Benadryl] 25 mg IV NOW STA
Ketorolac [Toradol] 15 mg IV NOW STA
Meclizine [Antivert] 25 mg PO NOW STA
Metoclopramide [Reglan] 10 mg IV NOW STA
10/21/24 09:15
Complete Blood Count/With Diff Urgent
Comprehensive Metabolic Panel Urgent
10/21/24 10:11
Acetaminophen [Tylenol] 1,000 mg PO NOW STA
diazePAM [Valium Injection] 5 mg IV NOW STA
10/21/24 10:50
PT Consult [Pt Eval And Treat] Urgent
Treatment: Vestibular therapy
Activity Level: As Tolerated
Abnormal Lab Results
10/21/24
09:15
WBC 4.4 L 10^3/uL
(4.8-10.8)
MCH 31.1 H pg
(27.0-31.0)
MPV 11.1 H fL
(7.4-10.4)
Monocytes % 12.0 H %
(1.7-9.3)
Carbon Dioxide 31 H mmol/L
(22-30)
10/21/24 09:15
10/21/24 09:15
Vital Signs
Initial and Last Documented VS:
Initial Vital Signs
Temp Pulse Resp BP Pulse Ox
98.4 F 73 18 102/77 100
10/21/24 08:23 10/21/24 08:23 10/21/24 08:23 10/21/24 08:23 10/21/24 08:23
Last Documented Vital Signs
Temp Pulse Resp BP Pulse Ox
98.4 F 72 16 106/71 100
10/21/24 08:23 10/21/24 11:00 10/21/24 11:00 10/21/24 13:28 10/21/24 11:30
MDM/Problems Addressed
Differential Diagnosis Includes:
Not limited to: Vestibular migraine, BPPV, M�ni�re's disease, labyrinthitis, vestibular neuritis, etc.
MDM/Problems Addressed:
A 58-year-old female presented with a persistent migraine associated with vertigo, symptoms exacerbated by head movement. Her history includes mal de debarquement syndrome and vestibular migraines. The current episode mirrors prior flares although
symptoms have been poorly managed at home. No hx of trauma or other neurological symptoms. Vitals and physical exam as above. She appeared well and in no apparent distress with no focal neurological deficits noted on examination, demonstrating a
steady gait and fluid speech.
Initial labs revealed mild leukopenia, and her chemistry was unremarkable. An EKG showed normal sinus rhythm without acute ischemic changes or arrhythmia. Considering the similarity of symptoms to previous episodes and stable neurologic findings, CT
imaging was not deemed necessary. Will tx symptoms and reassess.
Update: The patient received a migraine cocktail, IV fluids, Meclizine, and Valium with some improvement in symptoms
Overall impression is likely vestibular migraine or acute exacerbation of Mal debarquement syndrome. While symptoms did improve mildly, given persistence - admission was offered for further symptomatic management vs discharge home. Patient prefers
discharge home as she has an appt with a new ENT tomorrow and feels that she can manage symptoms at home. Strict return precautions discussed. Patient discussed w/ attending physician.
Chronic conditions affecting care:
History of vestibular migraines, MalDebarqument syndrome
Acute Exacerbation and/or Progression of Chronic Illness:
Acute exacerbation of vestibular migraine and MalDebarqument syndrome
*Pulse Oximetry
Patient hypoxic: no (100% RA)
*EKG
Interpreted by ED Provider?: Yes
EKG Intrepretation Date: 10/21/24
Interpretation: normal
Comparison EKG: no changes
Heart Rate: 62
Rate: normal
Rhythm: sinus
[place]: normal axis
Interval: normal interval
QRS Pattern: normal QRS
Ischemia: no ischemia
*Critical Care Note
Total Time (30-74mins, 75-104mins- exclusive of procedures): Not Applicable
ED Attending Note
-
Portions of this chart may have been created with voice recognition software.� Occasional wrong word or��sound alike� substitutions may have occurred due to the inherent limitations of voice recognition software.
Discharge Plan
Departure
Patient Disposition: Home (Routine Discharge)
Date of Disposition: 10/21/24
Time of Disposition: 13:25
Patient with high blood pressure during this ER visit?: No
Condition: Good
Covid-19: Not Applicable
Discharge Problem:
Vestibular migraine
Instructions: Migraines (DC), Vertigo - ED discharge instructions
Prescriptions:
No Action
diazepam 5 MG tablet
5 mg PO Q6HPRN PRN (Reason: vertigo)
Rx Instructions:
04/10/2023, patient filled this medication on 03/10/2023 for 100 tablets according to PDMP.
acetaminophen [Tylenol] 325 mg Tablet
975 mg PO DAILYPRN PRN (Reason: mild pain)
calcium carbonate [Calcium 600] 600 mg calcium (1,500 mg) Tablet
600 mg PO DAILY
ibuprofen [Advil] 200 mg Tablet
400 mg PO BIDPRN PRN (Reason: mild pain)
vitamin B complex Tablet
1 tab PO DAILY
bisacodyl [Dulcolax (bisacodyl)] 5 mg Tablet,Delayed Release (Dr/Ec)
5 mg PO DAILYPRN PRN (Reason: constipation)
cholecalciferol (vitamin D3) 25 mcg (1,000 unit) Tablet
25 mcg PO DAILY
magnesium glycinate 100 mg Tablet
100 mg PO HS
omega 8-pxb-uln-fish oil [Fish Oil] 1,000 mg (120 mg-180 mg) Capsule
1 cap PO DAILY
coQ10 (ubiquinol) 100 mg Capsule
100 mg PO DAILY
Nurtec ODT 75 mg Tablet,Disintegrating
75 mg PO DAILY PRN (Reason: Pain) Qty: 0 0RF
prochlorperazine maleate [Compazine] 10 mg tablet
10 mg PO Q8H PRN (Reason: headache, nausea, vomiting) 7 Days Qty: 21 0RF
diphenhydramine HCl [Benadryl] 25 mg capsule
25 mg PO TID PRN (Reason: mod to severe headache, nausea) Qty: 21 0RF
ketorolac 10 mg tablet
10 mg PO TID PRN (Reason: moderate to severe headache) 5 Days Qty: 20 0RF
Rx Instructions:
hold ibuprofen or nsaids when taking this medication
omeprazole 20 mg capsule,delayed release(DR/EC)
20 mg PO DAILY 14 Days Qty: 14 0RF
acetaminophen 500 mg capsule
500 mg PO Q6H PRN (Reason: Pain) Qty: 14 0RF
diazepam [Valium] 5 mg tablet
5 mg PO BID PRN (Reason: Sleep) Qty: 10 0RF
methylprednisolone [Medrol (Martinez)] 4 mg tablets,dose pack
See Rx Instructions .ROUTE .COMPLEX Qty: 21 0RF
Rx Instructions:
for 6 days
Referrals:
Roma Sue CRNP [Family Provider, General] - Follow up in 2-3 days
Activity Restrictions/Additional Instructions:
RETURN TO THE EMERGENCY DEPARTMENT WITH ANY INTRACTABLE HEADACHE, INTRACTABLE NAUSEA/VOMITING, PERSISTENT DIZZINESS/VERTIGINOUS SYMPTOMS, DIFFICULTIES AMBULATING, DIFFICULTY SPEAKING OR SWALLOWING, CHANGES IN VISION, CHANGES IN MENTAL STATUS, OR ANY
OTHER CONCERN
- As discussed�you should continue to take Tylenol and/or Motrin at home as needed for headache. It is important to stay well-hydrated. You can continue to take your Valium prescription as needed for vertigo
- Follow-up with ENT tomorrow as scheduled. You should also schedule follow-up appoint with your neurologist. If symptoms persist/worsen you may need further imaging with an MRI.
Monitor your symptoms closely and return to the emergency department with any acute worsening/new symptoms or any other concerns
Interventions
Interventions:
*Risk Screen - Suicide Last Done: 10/21/24 08:23
*General Assessment Last Done: 10/21/24 08:23
*Neglect/Abuse Screening Last Done: 10/21/24 08:23
*ED- Fall Risk Assessment Last Done: 10/21/24 08:33
*ED COVID-19 Vaccine History Last Done: 10/21/24 08:33
*Nursing Disposition Last Done: 10/21/24 14:05
ED- Neurological Assessment Last Done: 10/21/24 08:34
Discharge Date and Time
Discharge Date/Time: 10/21/24 14:07
Print Language: BANGLADESHI
[2024-10-21] MEDS: ANTIVERT 25 MG PO (09:12)
[2024-10-21] MEDS: TORADOL 15 MG IV (09:13)
[2024-10-21] MEDS: NSS 1000 IV (09:13)
[2024-10-21] MEDS: REGLAN 10 MG IV (09:13)
[2024-10-21] MEDS: BENADRYL 25 MG IV (09:14)
[2024-10-21 09:29] LABS: % Basophils 1.1 % (0-2); % Eosinophils 3.4 % (0-6); % Immature Granulocytes 0.5 % (0-0.5); % Lymphocytes 30.5 % (20.5-51.1); % Neutrophils 52.5 % (42.2-75.2); Absolute Basophils 0.1 10^3/uL (0-0.2); Absolute Eosinophils 0.2 10^3/uL (0-0.7); Absolute Lymphocytes 1.4 10^3/uL (1.2-3.4); Absolute Monocytes 0.5 10^3/uL (0.1-0.6); Absolute Neutrophils 2.3 10^3/uL (1.4-6.5); Hematocrit 39.3 % (37.0-47.0); Hemoglobin 13.2 g/dL (12.0-16.0); Mean Corp Hgb Conc. 33.6 g/dL (33.0-37.0); Mean Corpuscular Hgb 31.1 pg (27.0-31.0); Mean Corpuscular Volume 92.5 fL (81.0-99.0); Mean Platelet Volume 11.1 fL (7.4-10.4); Nucleated Red Blood Cells % 0 %; Platelet Count 208 10^3/uL (130-400); Red Blood Cell Count 4.25 10^6/uL (4.20-5.40); Red Cell Dist. Width 12.5 % (11.5-14.5); White Blood Cell Count 4.4 10^3/uL (4.8-10.8)
[2024-10-21 10:04] LABS: ALT (SGPT) 18 U/L (0-35); AST (SGOT) 22 U/L (14-36); Albumin 4.3 g/dl (3.5-5.0); Alkaline Phosphatase 45 U/L (38-126); Blood Urea Nitrogen 14 mg/dl (7-17); Calcium 9.5 mg/dl (8.4-10.2); Carbon Dioxide 31 mmol/L (22-30); Chloride 106 mmol/L (98-107); Glucose 92 mg/dl (70-99); Potassium 4.3 mmol/L (3.5-5.1); Sodium 141 mmol/L (135-145); Total Bilirubin 0.4 mg/dl (0.2-1.3); Total Protein 6.6 g/dl (6.3-8.2); eGFR > 60.00
[2024-10-21] MEDS: TYLENOL 1000 MG PO (10:21)
[2024-10-21] MEDS: VALIUM INJECTION 5 MG IV (10:27)
== END 2024-10-21 14:07 | disposition home or self-care (01) ==
LOC: EMR 08:19
PROVIDERS: Physician Assistant; EMERGENCY PHYSICIAN Emergency Medicine; FAMILY PHYSICIAN Nurse Practitioner
DX: G43.809 Other migraine, not intractable, without status migrainosus (principal); R42 Dizziness and giddiness
CPT/HCPCS: 96374; 96375; 96361; 99284; 80053; 85025; 93005

== ENCOUNTER → 2025-02-02 13:03 | Outpatient (REF) | payer BC, SELFPAY | LOC: HWRAD 13:03 | PROVIDERS: ATTENDING PHYSICIAN Nurse Practitioner | DX: M62.838 Other muscle spasm (principal); R22.1 Localized swelling, mass and lump, neck | CPT/HCPCS: 76536 ==

== ENCOUNTER → 2025-02-10 17:43 | Outpatient (REF) | payer BC, SELFPAY | LOC: MRI 3T 17:43 | PROVIDERS: ATTENDING PHYSICIAN Nurse Practitioner Adult Health; FAMILY PHYSICIAN Nurse Practitioner | DX: G43.009 Migraine without aura, not intractable, without status migrainosus (principal); R42 Dizziness and giddiness | CPT/HCPCS: 70553; A9575 ==

== ENCOUNTER 2025-03-26 00:34 | Emergency (ER) | payer BC, SELFPAY ==
[2025-03-26 00:39] VITALS: BMI 24.0
[2025-03-26 00:40] VITALS: BP 126/82
[2025-03-26 00:43] VITALS: BP 126/82
[2025-03-26 01:00] VITALS: BP 119/68
[2025-03-26 01:15] LABS: Hematocrit 35.9 % (37.0-47.0); Hemoglobin 12.7 g/dL (12.0-16.0); Mean Corp Hgb Conc. 35.4 g/dL (33.0-37.0); Mean Corpuscular Volume 86.9 fL (81.0-99.0); Platelet Count 217 10^3/uL (130-400); Red Cell Dist. Width 12.2 % (11.5-14.5)
[2025-03-26 01:22] LABS: ALT (SGPT) 15 U/L (0-35); AST (SGOT) 23 U/L (14-36); Albumin 4.6 g/dl (3.5-5.0); Alkaline Phosphatase 74 U/L (38-126); Blood Urea Nitrogen 16 mg/dl (7-17); Calcium 9.4 mg/dl (8.4-10.2); Carbon Dioxide 21 mmol/L (22-30); Chloride 108 mmol/L (98-107); Estimated Creatinine Clearance 59 ml/min; Glucose 157 mg/dl (70-99); Potassium 3.4 mmol/L (3.5-5.1); Sodium 138 mmol/L (135-145); Total Protein 6.8 g/dl (6.3-8.2); eGFR > 60.00
[2025-03-26 01:54] LABS: Nucleated Red Blood Cells % 0 %
[2025-03-26 02:00] VITALS: BP 111/81
--- NOTE | 2025-03-26 02:10 | ED.GENMED ---
History of Present Illness
General
Chief Complaint: Medication Reaction
Source: patient
Exam Limitations: none
Time Seen by Provider: 03/26/25 01:48
History of Present Illness
History of Present Illness:
See MDM
Past History
Past History
ED Past Medical History: Other (Vestibular migraines, GERD)
ED Past Surgical History: None
Patient has exhibited threatening behavior?: No
Social History
Tobacco: Non-smoker
Alcohol: Occasional
Drug: None
Personal:
Employment: Employed
Family History
Family History: Other
Phy Exam
Physical Exam
Physical Exam:
See MDM
Course
Orders/Labs/Results
Orders:
Orders
03/26/25 00:45
Electrocardiogram (*1) Urgent
Reason for Study: Other
Other Reason for Exam: Possible Sepsis
EKG- Treatment ONCE
03/26/25 00:47
Complete Blood Count/With Diff Urgent
Comprehensive Metabolic Panel Urgent
Abnormal Lab Results
03/26/25
00:47
RBC 4.13 L 10^6/uL
(4.20-5.40)
Hct 35.9 L %
(37.0-47.0)
MPV 11.1 H fL
(7.4-10.4)
Absolute Lymphs (auto) 3.9 H 10^3/uL
(1.2-3.4)
Neutrophils % 23.6 L %
(42.2-75.2)
Lymphocytes % 63.5 H %
(20.5-51.1)
Potassium 3.4 L mmol/L
(3.5-5.1)
Chloride 108 H mmol/L
(98-107)
Carbon Dioxide 21 L mmol/L
(22-30)
Glucose 157 H mg/dl
(70-99)
03/26/25 00:47
03/26/25 00:47
Vital Signs
Initial and Last Documented VS:
Initial Vital Signs
Temp Pulse Resp BP Pulse Ox
97.5 F 102 18 126/82 100
03/26/25 00:43 03/26/25 00:43 03/26/25 00:43 03/26/25 00:43 03/26/25 00:43
Last Documented Vital Signs
Temp Pulse Resp BP Pulse Ox
97.5 F 102 18 126/82 100
03/26/25 00:43 03/26/25 00:43 03/26/25 00:43 03/26/25 00:43 03/26/25 00:43
MDM/Problems Addressed
Differential Diagnosis Includes:
Note:
CHIEF COMPLAINT(S)
Adverse reaction after consuming an edible product containing THC.
HISTORY OF PRESENT ILLNESS
The patient is a 59-year-old female with no significant medical history who presented after experiencing an adverse reaction following the consumption of a THC edible product. The patient reported that she consumed a quarter of a brownie between
10:00 PM and 10:30 PM with the intent to help her sleep. The patient has a history of experimenting with CBD products in the past but has not previously ingested THC-laced edibles. She mentioned waking up around 11:50 PM feeling unusual and
experiencing an increased need to urinate, which she described as 'more than normal.' She did not experience loss of consciousness or any severe symptoms but felt a sense of unease about the delayed effect and intensity of the reaction. There were
no indications of respiratory distress, severe allergic reactions, or signs that suggest co-ingestion of other substances such as fentanyl. The patient was advised that the adverse effects experienced were likely due to THC, considering she consumed
an unknown dosage from a homemade source.
PHYSICAL EXAM
General: Alert, no acute distress.
Skin: Warm, dry.
Head: Normocephalic, atraumatic
Neck: Appears supple, trachea midline.
Eyes, Ears, Nose, Mouth, and Throat: Moist mucous membranes. Sclera injected
Cardiovascular: No signs of cyanosis. Regular rate and rhythm
Respiratory: Respirations are non-labored. Lungs clear
Abdomen: Non-distended
Musculoskeletal: No deformities
Neurological: No focal neurological deficit observed.
Psychiatric: Cooperative, appropriate mood and affect.
PLAN
- Monitor and observe the patient in a controlled setting to assess recovery from the THC exposure.
- Provide reassurance and education about the expectant course of symptoms related to THC ingestion.
- Offer hydration and comfort measures.
- Watch for normalization of awake and alert status, and ensure vitals remain stable.
DIFFERENTIAL DIAGNOSIS
The Differential Diagnosis includes, in no particular order and is not limited to:
- Adverse reaction to THC
- Possible overdose of THC
- Anxiety secondary to THC ingestion
- Polydipsia-induced hyponatremia (considering increased urination)
- Accidental poisoning (less likely given presentation and stability)
SUMMARY OF ENCOUNTER
The patient presented to the emergency department after consuming an unknown dose of THC via a homemade edible. She experienced mild adverse effects, characterized by increased urination and unease, but showed no severe symptoms. The treatment
approach in the emergency department primarily involved monitoring and reassuring the patient, with an emphasis on understanding the potential effects and expected recovery pattern related to THC. The patients vital signs were stable, and no acute
life-threatening conditions were identified.
DISPOSITION
Observation in the emergency department.
MEDICAL DECISION MAKING
-Complexity of Data Reviewed:
Chronic conditions affecting care: None major discussed specific to chronic diseases.
-Data:
Category 1
Patients outpatient pharmacy records and Nursing notes reviewed
Category 2
Clinical information was obtained via self-reporting by the patient.
Category 3
No consultations conducted within clinical discussions.
DIAGNOSIS
- Adverse reaction to THC ingestion (ICD-10: T40.7)
- Possible THC overdose (ICD-10: T40.7)
EKG
My independent EKG interpretation is:
- Rhythm: Normal size rhythm
- Heart Rate: 94 beats per minute
- [place]: Normal
- ST Changes: No ST elevation noted
Disposition:
SUMMARY OF ENCOUNTER
The patient, a 15-year-old female, presented with dizziness, anxiety, and fatigue after consuming a THC-infused cookie. These symptoms led to panic and concern about potential underlying problems. Blood work and EKG were conducted and returned
negative, indicating no acute issues. It was concluded that the symptoms were an adverse reaction to THC, particularly since this was the patients first experience ingesting this type of substance. The patient consumed the THC-infused cookie with
the intention of aiding sleep. After discussing her symptoms and the likely cause, the patient expressed comfort with returning home and agreed to cease ingesting THC.
DISPOSITION
Discharge.
ASSESSMENT
Adverse reaction to THC consumption.
PLAN
Monitor symptoms at home and avoid future THC ingestion.
INDEPENDENT REVIEW OF LABS AND INTERPRETATION OF TESTS
My independent EKG interpretation is normal with no concerning findings.
MEDICAL DECISION MAKING
-Complexity of Data Reviewed: No significant chronic conditions affecting care. Differential diagnosis includes:
- Adverse reaction to THC
- Possible overdose of THC
- Anxiety secondary to THC ingestion
- Polydipsia-induced hyponatremia
- Accidental poisoning (less likely given presentation and stability)
-Data:
Category 1
No specific additional tests considered.
Category 2
Clinical information was obtained via self-reporting by the patient.
Category 3
No consultations conducted within clinical discussions.
-Risk:
Consideration of Admission/Observation: Escalation of care including admission/observation was considered given the complexity and risk of the patients presenting complaint. However, ultimately I feel the patient is safe for outpatient management
with close follow-up. Reasoning: Work-up was reassuring, no acute life/organ-threatening processes were revealed, patients symptoms well controlled upon reevaluation, reexamination was reassuring, vitals are stable, patient agreeable with discharge,
and reliable for follow-up.
DIAGNOSIS
Adverse reaction to THC ingestion (ICD-10: T40.7).
*Pulse Oximetry
SaO2: 100
Oxygen Mode of Delivery: Room air
Patient hypoxic: no
*Critical Care Note
Total Time (30-74mins, 75-104mins- exclusive of procedures): Not Applicable
ED Attending Note
-
Portions of this chart may have been created with voice recognition software.� Occasional wrong word or��sound alike� substitutions may have occurred due to the inherent limitations of voice recognition software.
Discharge Plan
Departure
Patient Disposition: Home (Routine Discharge)
Date of Disposition: 03/26/25
Time of Disposition: 02:11
Patient with high blood pressure during this ER visit?: No
Discharge Problem:
Adverse effect of drug
Prescriptions:
No Action
diazepam 5 MG tablet
5 mg PO Q6HPRN PRN (Reason: vertigo)
Rx Instructions:
04/10/2023, patient filled this medication on 03/10/2023 for 100 tablets according to PDMP.
acetaminophen [Tylenol] 325 mg Tablet
975 mg PO DAILYPRN PRN (Reason: mild pain)
calcium carbonate [Calcium 600] 600 mg calcium (1,500 mg) Tablet
600 mg PO DAILY
ibuprofen [Advil] 200 mg Tablet
400 mg PO BIDPRN PRN (Reason: mild pain)
vitamin B complex Tablet
1 tab PO DAILY
bisacodyl [Dulcolax (bisacodyl)] 5 mg Tablet,Delayed Release (Dr/Ec)
5 mg PO DAILYPRN PRN (Reason: constipation)
cholecalciferol (vitamin D3) 25 mcg (1,000 unit) Tablet
25 mcg PO DAILY
magnesium glycinate 100 mg Tablet
100 mg PO HS
omega 0-nxt-cjt-fish oil [Fish Oil] 1,000 mg (120 mg-180 mg) Capsule
1 cap PO DAILY
coQ10 (ubiquinol) 100 mg Capsule
100 mg PO DAILY
Nurtec ODT 75 mg Tablet,Disintegrating
75 mg PO DAILY PRN (Reason: Pain) Qty: 0 0RF
prochlorperazine maleate [Compazine] 10 mg tablet
10 mg PO Q8H PRN (Reason: headache, nausea, vomiting) 7 Days Qty: 21 0RF
diphenhydramine HCl [Benadryl] 25 mg capsule
25 mg PO TID PRN (Reason: mod to severe headache, nausea) Qty: 21 0RF
ketorolac 10 mg tablet
10 mg PO TID PRN (Reason: moderate to severe headache) 5 Days Qty: 20 0RF
Rx Instructions:
hold ibuprofen or nsaids when taking this medication
omeprazole 20 mg capsule,delayed release(DR/EC)
20 mg PO DAILY 14 Days Qty: 14 0RF
acetaminophen 500 mg capsule
500 mg PO Q6H PRN (Reason: Pain) Qty: 14 0RF
diazepam [Valium] 5 mg tablet
5 mg PO BID PRN (Reason: Sleep) Qty: 10 0RF
methylprednisolone [Medrol (Martinez)] 4 mg tablets,dose pack
See Rx Instructions .ROUTE .COMPLEX Qty: 21 0RF
Rx Instructions:
for 6 days
Referrals:
Roma Sue CRNP [Family Provider, General]
Activity Restrictions/Additional Instructions:
Please return for any worsening symptoms.
You may return at any time if you have further concerns.
Please follow up with your doctor at the first available appointment, preferably this week.
Thank you for choosing [facility].
Interventions
Interventions:
*Risk Screen - Suicide Last Done: 03/26/25 00:39
*General Assessment Last Done: 03/26/25 00:39
*Neglect/Abuse Screening Last Done: 03/26/25 00:39
*ED- Fall Risk Assessment Last Done: 03/26/25 00:39
*ED COVID-19 Vaccine History Last Done: 03/26/25 00:39
*ED Influenza Vaccine History Last Done: 03/26/25 00:39
ED-Skin Assessment Last Done: 03/26/25 00:39
ED- Pulmonary Assessment Last Done: 03/26/25 00:39
ED-EENT Assessment Last Done: 03/26/25 00:44
Discharge Date and Time
Print Language: THAI
== END 2025-03-26 02:46 | disposition home or self-care (01) ==
LOC: EMR 00:34
PROVIDERS: EMERGENCY PHYSICIAN Student in an Organized Health Care Education/Training Program; FAMILY PHYSICIAN Nurse Practitioner
DX: R42 Dizziness and giddiness (principal); T40.715A Adverse effect of cannabis, initial encounter; X58.XXXA Exposure to other specified factors, initial encounter
CPT/HCPCS: 99284; 80053; 85025; 93005

== ENCOUNTER 2025-03-31 13:21 | Inpatient (IN) | payer BC, SELFPAY ==
[2025-03-31] VITALS (19 sets, daily range): BP systolic 96–150; BP diastolic 49–91; BMI 23.2
--- NOTE | 2025-03-31 11:25 | ED.GENMED ---
History of Present Illness
<Melvi Goldstein PA-C - Last Filed: 03/31/25 16:27>
General
Chief Complaint: Chest Pain
Source: patient
Exam Limitations: none
Time Seen by Provider: 03/31/25 11:11
History of Present Illness
History of Present Illness:
59yoF with a history of hyperlipidemia and migraines presenting via EMS for evaluation of chest pain. Patient works as a school nurse. She was sitting down at her desk about 10:10am when she suddenly felt 'funny.' She subsequently felt flushed,
short of breath, and like her heart was racing. Patient felt like something was not right and called EMS. She started to experience sharp central chest pain on EMS arrival. She received full dose aspirin and nitroglycerin x3 in the ambulance.
She continues to have chest discomfort but is feeling improved. Of note, patient had a steroid injection in her cervical region 2 days ago. She follows with Dr. Han for hyperlipidemia. She denies any history of [place].
Past History
<Melvi Goldstein PA-C - Last Filed: 03/31/25 16:27>
Past History
ED Past Medical History: Other (Vestibular migraines, GERD)
ED Past Surgical History: None
Patient has exhibited threatening behavior?: No
Social History
Tobacco: Non-smoker
Alcohol: Occasional
Drug: None
Personal:
Employment: Employed
Family History
Family History: Other
Phy Exam
<Melvi Goldstein PA-C - Last Filed: 03/31/25 16:27>
General Physical Exam
General Presentation: mild distress
General Skin: warm and dry
General Habitus: normal
General Mental: alert
ENT Exam
ENT Exam: normocephalic
Cardiovascular Exam
Cardiovascular Exam: regular rate/rhythm, no edema and no murmur
Pulmonary Exam
Pulmonary Exam: lungs clear, no respiratory distress, no rales, no crackles, no rhonchi and no wheezing
Neurological Exam
Neurological Exam: alert
[place] Coma Scale
Eye Opening: Spontaneous
Verbal Response: Oriented
Motor Response: Obeys Commands
GCS Total Score: 15
Skin Exam
Skin Exam: normal color and warm/dry
Psychiatric Exam
Psychiatric Exam: anxious
Scores
<Melvi Goldstein PA-C - Last Filed: 03/31/25 16:27>
Heart Score for Chest Pain Patients
STEMI patient?: No
History: Moderately Suspicious
ECG: Significant ST-Depression
Age: >45 - <65 years
Risk Factors: 1 or 2 Risk Factors
Troponin: </= Normal Limit
Heart Score for Chest Pain Patients: 5
Heart Score Risk: 20.3% MACE over next 6 weeks
Course
<Melvi Goldstein PA-C - Last Filed: 03/31/25 16:27>
Orders/Labs/Results
Orders:
Orders
03/31/25 11:16
EKG [Electrocardiogram (*1)] Urgent
Reason for Study: Chest Pain
03/31/25 11:17
EKG- Treatment ONCE
03/31/25 11:23
CMP [Comprehensive Metabolic Panel] Urgent
Complete Blood Count/With Diff Urgent
Magnesium Urgent
Comment: ADD ON
Troponin I Urgent
03/31/25 11:25
Cardiac Monitoring- Treatment ONCE
03/31/25 11:26
CR Chest - 2 Views Urgent
Comment:
Reason For Exam: CP
03/31/25 11:57
Add On- LAB Urgent
Tests Added?: magnesium
Potassium Chloride [KCl] 60 meq PO NOW STA
03/31/25 12:31
CARDIOLOGY CONSULT Urgent
Consulting Provider: Edi Farris
Was physician already notified: Yes
03/31/25 13:02
EKG- Treatment ONCE
03/31/25 13:08
Mag Hydrox/Al Hydrox/Simeth [Maalox] 30 ml Phenobarb/Hyoscy/Atropine/Scop [] 10 ml Viscous Lidocaine 2% [Xylocaine Viscous Cup] 10 ml PO NOW
03/31/25 14:30
Electrocardiogram (*1) Urgent
Reason for Study: Chest Pain
03/31/25 14:40
Troponin I Urgent
Abnormal Lab Results
03/31/25
11:23
MPV 11.4 H fL
(7.4-10.4)
Absolute Lymphs (auto) 3.5 H 10^3/uL
(1.2-3.4)
Sodium 134 L mmol/L
(135-145)
Potassium 3.0 L mmol/L
(3.5-5.1)
BUN 20 H mg/dl
(7-17)
Glucose 113 H mg/dl
(70-99)
03/31/25 11:23
03/31/25 11:23
Vital Signs
Initial and Last Documented VS:
Initial Vital Signs
Pulse Resp BP Pulse Ox
102 20 136/91 100
03/31/25 11:13 03/31/25 11:13 03/31/25 11:13 03/31/25 11:13
Last Documented Vital Signs
Temp Pulse Resp BP Pulse Ox
97.9 F 62 17 128/78 98
03/31/25 11:28 03/31/25 15:12 03/31/25 15:12 03/31/25 15:12 03/31/25 15:12
<Arden Odonnell, DO - Last Filed: 03/31/25 12:16>
Orders/Labs/Results
Orders:
Orders
03/31/25 11:16
EKG [Electrocardiogram (*1)] Urgent
Reason for Study: Chest Pain
03/31/25 11:17
EKG- Treatment ONCE
03/31/25 11:23
CMP [Comprehensive Metabolic Panel] Urgent
Complete Blood Count/With Diff Urgent
Magnesium Urgent
Comment: ADD ON
Troponin I Urgent
03/31/25 11:25
Cardiac Monitoring- Treatment ONCE
03/31/25 11:26
CR Chest - 2 Views Urgent
Comment:
Reason For Exam: CP
03/31/25 11:57
Add On- LAB Urgent
Tests Added?: magnesium
Potassium Chloride [KCl] 60 meq PO NOW STA
03/31/25 12:31
CARDIOLOGY CONSULT Urgent
Consulting Provider: Edi Farris
Was physician already notified: Yes
03/31/25 13:02
EKG- Treatment ONCE
03/31/25 13:08
Mag Hydrox/Al Hydrox/Simeth [Maalox] 30 ml Phenobarb/Hyoscy/Atropine/Scop [] 10 ml Viscous Lidocaine 2% [Xylocaine Viscous Cup] 10 ml PO NOW
03/31/25 14:30
Electrocardiogram (*1) Urgent
Reason for Study: Chest Pain
03/31/25 14:40
Troponin I Urgent
Abnormal Lab Results
03/31/25
11:23
MPV 11.4 H fL
(7.4-10.4)
Absolute Lymphs (auto) 3.5 H 10^3/uL
(1.2-3.4)
Sodium 134 L mmol/L
(135-145)
Potassium 3.0 L mmol/L
(3.5-5.1)
BUN 20 H mg/dl
(7-17)
Glucose 113 H mg/dl
(70-99)
03/31/25 11:23
03/31/25 11:23
Vital Signs
Initial and Last Documented VS:
Initial Vital Signs
Pulse Resp BP Pulse Ox
102 20 136/91 100
03/31/25 11:13 03/31/25 11:13 03/31/25 11:13 03/31/25 11:13
Last Documented Vital Signs
Temp Pulse Resp BP Pulse Ox
97.9 F 62 17 128/78 98
03/31/25 11:28 03/31/25 15:12 03/31/25 15:12 03/31/25 15:12 03/31/25 15:12
<Melvi Goldstein PA-C - Last Filed: 03/31/25 16:27>
MDM/Problems Addressed
Differential Diagnosis Includes:
59yoF here with chest pain. Started with SOB and funny feeling 1 hour ago. Developed chest pain in ambulance. Feeling improved after NTG x3. Patient anxious on exam but non-toxic. Differential diagnosis includes but is not limited to: ACS, angina,
esophagitis, doubt PE as oxygen saturation 100% on room air
Initial ED plan: Check cardiac labs, EKG, and CXR.
<Melvi Goldstein PA-C - Last Filed: 03/31/25 16:27>
*Pulse Oximetry
SaO2: 100
Oxygen Mode of Delivery: Room air
Patient hypoxic: no
*EKG
Interpreted by ED Provider?: Yes
EKG Intrepretation Date: 03/31/25
Heart Rate: 102
Rate: tachycardiac
Rhythm: sinus
[place]: normal axis
Interval: normal interval
QRS Pattern: normal QRS
Ischemia: ST depression (ST/T wave changes noted in II, III, aVF, V3-V6)
*Critical Care Note
Total Time (30-74mins, 75-104mins- exclusive of procedures): Not Applicable
<Melvi Goldstein PA-C - Last Filed: 03/31/25 16:27>
Update Note
Update Note:
EKG shows ST depression in inferolateral leads which is new from prior EKG in October of this year. Troponin WNL. CXR clear. Cardiology notified and patient admitted for further evaluation.
ED Attending Note
<Melvi Goldstein PA-C - Last Filed: 03/31/25 16:27>
-
Portions of this chart may have been created with voice recognition software.� Occasional wrong word or��sound alike� substitutions may have occurred due to the inherent limitations of voice recognition software.
<Arden Odonnell DO - Last Filed: 03/31/25 12:16>
ED Attending Note
Patient seen and examined by attending physician: Yes
I performed the substantive portion of visit, reviewed & personally made and approve the management plan that is documented in note by myself or RASHIDA.: Yes
ED Attending Note:
I have seen and evaluated the patient with a [id number] encounter. I have spoken to the advance practicer provider and involved in the medical history, the physical exam, medical decision making.
Evaluation and management service: agree unless noted differently below.
Results interpretation: agree unless noted differently below.
Focused HPI: 59-year-old female presenting with intermittent nausea, jaw pain and chest pain. It is not technically exertional because she is afraid to exert himself given the symptoms. She denies prior heart
Physical exam: Sitting bed comfortably. Mildly nervous. Heart regular rate and rhythm. No leg edema
Medical Decision Making: EKG does show new ST depressions. Troponin is negative but will discuss case with cardiology given EKG findings and symptoms
Discharge Plan
Departure
Patient Disposition: Admit
Date of Disposition: 03/31/25
Time of Disposition: 12:38
Presentation/result/management discussed w/ accepting MD/DO: Hospitalist
Discharge Problem:
Chest pain, Abnormal EKG
Interventions
Interventions:
*Risk Screen - Suicide Last Done: 03/31/25 15:13
*General Assessment Last Done: 03/31/25 11:29
*Neglect/Abuse Screening Last Done: 03/31/25 11:29
*ED- Fall Risk Assessment Last Done: 03/31/25 11:29
*ED COVID-19 Vaccine History Last Done: 03/31/25 11:29
*ED Influenza Vaccine History Last Done: 03/31/25 11:29
*Nursing Disposition Last Done: 03/31/25 15:12
ED- Cardiac Assessment Last Done: 03/31/25 11:29
Discharge Date and Time
Discharge Date/Time: 03/31/25 15:13
[2025-03-31 11:35] LABS: Hematocrit 37.7 % (37.0-47.0); Hemoglobin 13.0 g/dL (12.0-16.0); Mean Corp Hgb Conc. 34.5 g/dL (33.0-37.0); Mean Corpuscular Volume 89.8 fL (81.0-99.0); Nucleated Red Blood Cells % 0 %; Platelet Count 225 10^3/uL (130-400); Red Cell Dist. Width 12.0 % (11.5-14.5)
[2025-03-31 11:52] LABS: ALT (SGPT) 15 U/L (0-35); AST (SGOT) 23 U/L (14-36); Albumin 4.8 g/dl (3.5-5.0); Alkaline Phosphatase 65 U/L (38-126); Blood Urea Nitrogen 20 mg/dl (7-17); Calcium 9.7 mg/dl (8.4-10.2); Carbon Dioxide 24 mmol/L (22-30); Chloride 102 mmol/L (98-107); Estimated Creatinine Clearance 59 ml/min; Glucose 113 mg/dl (70-99); Potassium 3.0 mmol/L (3.5-5.1); Sodium 134 mmol/L (135-145); Total Protein 7.3 g/dl (6.3-8.2); eGFR > 60.00
[2025-03-31 12:04] LABS: Troponin I 0.015 ng/ml
[2025-03-31 12:16] LABS: Magnesium 1.9 mg/dl (1.6-2.3)
[2025-03-31] MEDS: KCL 60 MEQ PO (12:21)
--- NOTE | 2025-03-31 12:55 | HPS.HSE ---
Family Physician
-
Family Physician: CELIA Torres
Chief Complaint
-
chest pain
History of Present Illness
Ms. Skylar Serna is a 59 yo woman with hx HLD, migraines presents to the ER with chest pain.
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 While sitting she had sudden onset of flushing and she felt her throat get tight. She also felt her heart beating fast. She then developed left sided
sharp chest pain. She took her BP which was elevated and so EMS was called. Patient received nitro with relief each time in pain although it migrated somewhere else. Currently has some mild mid epigastric discomfort and mild nausea. No vomiting.
She denies similar symptoms before. She was here 03/26 after taking a THC brownie which resulted in similar abnormal mouth/throat sensations that then completely resolved.
No LE swelling. No shortness of breath.
She is generally an active person without chest pain on exertion.
Medical History
Past Medical History
Past Medical History: Reports Hypercholesterolemia and Other (migraines)
Past Surgical History: Reports Other
Social History
Tobacco: Non-smoker
Alcohol: Occasional
Family History
Family History: Not pertinent
Allergies / Home Medications
Allergies reflects when Allergies were last updated in [facility].
Home Medications with original date entered in [facility]
Allergy/Medication List:
Allergies
Allergy/AdvReac Type Severity Reaction Status Date / Time
erenumab-aooe (From Aimovig Allergy Unknown Verified 03/26/25 00:39
Autoinjector)
etodolac Allergy Swelling Verified 03/26/25 00:39
lamotrigine (From Lamictal) Allergy Swelling Verified 03/26/25 00:39
methylprednisolone (From AdvReac Unknown Pharmacy Verified 03/26/25 00:39
Solu-Medrol) to Review
metoclopramide (From Reglan) AdvReac Pharmacy Verified 03/26/25 00:39
to Review
Home Medications
acetaminophen 325 mg tablet (Tylenol) 650 mg PO DAILYPRN PRN mild pain 04/10/23
diazepam 5 mg tablet (Valium) 5 mg PO BIDPRN PRN Sleep 03/31/25
magnesium oxide 400 mg PO HS Supplement 03/31/25
rimegepant 75 mg disintegrating tablet (Nurtec ODT) 75 mg PO Q48H 03/31/25
rosuvastatin 5 mg tablet (Crestor) 5 mg PO QPM High Cholesterol 03/31/25
Review of Systems
-
History Source: Patient
A 12 point ROS was completed and negative except as noted: Yes
Physical Exam
Vital Signs
Vital Signs
Temp Pulse Resp BP Pulse Ox
97.9 F 85 18 142/89 100
03/31/25 11:28 03/31/25 12:00 03/31/25 12:00 03/31/25 12:00 03/31/25 12:15
Physical Exam
General: No Apparent Distress
HEENT: PERRLA
Respiratory: Clear; No Wheezes
Cardiac: S1/S2 and Regular Rhythm
GI: Soft and Non Tender
Musculoskeletal: No Edema
Skin: Warm and Dry; No Rash
Neuro: AO x 3
Psych: Calm
Laboratory Results
-
03/31/25 11:23
03/31/25 11:23
Laboratory Results
Total Bilirubin 0.7 mg/dl (0.2-1.3) 03/31/25 11:23
AST 23 U/L (14-36) 03/31/25 11:23
ALT 15 U/L (0-35) 03/31/25 11:23
Alkaline Phosphatase 65 U/L (38-126) 03/31/25 11:23
Troponin I 0.015 ng/ml 03/31/25 11:23
Data Reviewed
-
Diagnostic Radiology: Report Reviewed by me
Lab Data: Labs Reviewed by me
Impression/Plan
-
Ms. Skylar Serna is a 59 yo woman with hx HLD, migraines presents to the ER with chest pain.
Triage VS: T 97.9, P 102, RR 20, BP 136/91, SpO2 100%
LABS: WBC 7.5, HG 13, PLT 225, Na 134, K+ 3.0, Cr 0.8, Glucose 113, Mag 1.9, liver enzymes WNL; Trop 0.015
EKG: Sinus tach @ 102, t wave abnormality inferior leads and ST depression V4/V5 more pronounced than prior
MAR: K+ 60mEq x 1
Unstable Angina
-Patient received SL NTG x 3 and 324mg aspirin.
-left sided chest pain resolved, mild mid-epigastric - trial of GI cocktail ordered
-seen by cardiology in ER, plan for cardiac cath today
-admit to IVU
-daily aspirin
-[employer] Statin
-lipid panel and A1c
HLD - [employer] statin
Migraines - [employer] Nurtec
DVT PPx SCD
FULL CODE
[2025-03-31] MEDS: MAALOX 10 PO (13:31)
--- NOTE | 2025-03-31 13:32 | CON.CAR ---
Addendum entered and electronically signed by Edi Farris MD 03/31/25 17:32:
I saw and evaluated the patient, and I provided the substantive portion of the medical decision making.
I reviewed and agree with the note by Ms Ram and it accurately reflects our care.
I personally performed the medical decision making of the this encounter and my assessment and plan is below:
EKG and symptoms concerning for possible accelerating angina. Troponins are mildly elevated but still normal. Given constellation of signs and symptoms we will pursue coronary angiography
Original Note:
Consultation
Consultation Request
Date/Time Consultation Requested: 03/31/25 1230
Date/Time Consultation Performed: 03/31/25 1300
Requesting Provider: Melvi Goldstein
Performing Provider: Antonina YANG for Dr. Farris
Reason for Consultation: chest pain, abnormal EKG
Medical History
-
Chief Complaint: chest pain
History of Present Illness:
59 y/o female (patient of Dr. Han) with dyslipidemia, elevated LP(a)- 157, GERD, neck pain (gets steroid injections), and vestibular migranes. She is here for evaluation of chest pain. 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
anything particularly active and she felt like she was having an allergic reaction in her neck/chest region and she had palps and HR around 110 and BP 180/108. She noted a sharp, but also pressure to her epigastric region. It lasted minutes, but has
been coming and going. She received full dose ASA and well as nitro en route. She is not sure if that helped. EKG shows ST depressions (changed from EKG October 2024). Trop is 0.015. She is in no distress at the time of my assessment.
Past Medical History
Past Medical History: GERD, Hypercholesterolemia and Other (as above)
Social History
Tobacco: Non-Smoker
Alcohol: Occasional
Family History
Family History: Reviewed & Not Pertinent
Allergies / Home Medications
Allergy/AdvReac Type Severity Reaction Status Date / Time
erenumab-aooe (From Aimovig Allergy Unknown Verified 03/26/25 00:39
Autoinjector)
etodolac Allergy Swelling Verified 03/26/25 00:39
lamotrigine (From Lamictal) Allergy Swelling Verified 03/26/25 00:39
methylprednisolone (From AdvReac Unknown Pharmacy Verified 03/26/25 00:39
Solu-Medrol) to Review
metoclopramide (From Reglan) AdvReac Pharmacy Verified 03/26/25 00:39
to Review
�Medication �Instructions �Recorded �Confirmed �Type
acetaminophen 325 mg tablet 650 mg PO DAILYPRN PRN mild pain 04/10/23 03/31/25 History
(Tylenol)
diazepam 5 mg tablet (Valium) 5 mg PO BIDPRN PRN Sleep 03/31/25 03/31/25 History
magnesium oxide 400 mg PO HS Supplement 03/31/25 03/31/25 History
rimegepant 75 mg disintegrating 75 mg PO Q48H 03/31/25 03/31/25 History
tablet (Nurtec ODT)
rosuvastatin 5 mg tablet (Crestor) 5 mg PO QPM High Cholesterol 03/31/25 03/31/25 History
Review of Systems
-
History Source: Patient
All other systems: Negative unless noted
Cardiac: Chest Pain and Palpitations
Physical Exam
Vital Signs
Temp Pulse Resp BP Pulse Ox
97.9 F 85 18 142/89 100
03/31/25 11:28 03/31/25 12:00 03/31/25 12:00 03/31/25 12:00 03/31/25 12:15
Lab Results
03/31/25 11:23
03/31/25 11:23
Troponin I 0.015 ng/ml 03/31/25 11:23
Physical Exam
General: Well Developed and No Apparent Distress
HEENT: Normocephalic and Anicteric
Respiratory: Clear and Non Labored Respirations
Cardiac: Regular Rhythm
Musculoskeletal: No Edema
Skin: Warm and Dry
Neuro: AO x 3
Psych: Calm
Impression / Plan
-
Chest pain:
��������������� -some typical and atypical features, but with abnormal EKG, which is change from previous and epigastric CP that is intermittent, we have concern for unstable angina (diagnosis that is threat to life) and will plan for cardiac cath
(risk/benefits to be reviewed in full with patient by our senior asp net developer)
��������������� -full dose ASA given en route- continue daily for now
��������������� -risk factors include dyslipidemia (also hx elevated LP(a))
-will order echo as well
-check lipids and hgb A1C
-trend trop and EKG
-also with hx GERD and getting GI meds
Dyslipidemia:
��������������� -continue statin
��������������� -check lipids
Migraines:
��������������� -continue usual med
Hypokalemia:
��������������� -replaced in ER
��������������� -monitor
Data Reviewed
-
EKG: Tracing Personally Visualized and interpreted (ST [address]ressions in multiple leads)
Radiology: Report Reviewed by me (CXR: no acute disease of chest)
Medical Tests (Nuc Med, Echo etc): Other (will order echo)
Labs: Labs Reviewed by me
[2025-03-31 15:19] LABS: Troponin I 0.018 ng/ml
[2025-03-31] MEDS: NSS 1000 IV (16:30)
--- NOTE | 2025-03-31 16:52 | ITS.CL.PN ---
Distribution Specialist - Procedure Note
Procedure
Procedure Note:
CARDIAC CATHETERIZATION REPORT
Date of Procedure: 03/31/2025
Referring: Dr. Edi Farris MD
Indication: concern for ACS
PROCEDURE(S)
1. left heart catheterization
2. coronary angiography
ACCESS: 6F right radial artery (closure: radial band)
CATHETERS
1. 6F JR4
2. 6F JL4
MODERATE SEDATION: 25 minutes of moderate sedation was utilized. An independent er medical technician was present to assist with and help manage the patient's level of consciousness and physiologic status.
HEMODYNAMIC DATA
LV 107/6 (EDP 13) mmHg
AO 107/69 (mean 87) mmHg
CORONARY ANGIOGRAPHY
Dominance: right
LM: large, normal
LAD: large vessel giving rise to a moderate caliber D1, moderate caliber D2, and small D3 before wrapping around the apex. There are trivial luminal irregularities only, but notably slow flow in the large S1 and small S2.
LCx: moderate caliber vessel giving rise to a single moderate caliber branching marginal. There is no coronary artery disease.
RCA: large vessel giving rise to a moderate caliber RPDA, small RPL1, large RPL2, and small RPL3. There are mild luminal irregularities only.
CONCLUSIONS
1. Nonobstructive coronary artery disease as described with angiographically slow flow in the S1 and S2 possibly field representative of high microvascular resistance.
2. Normal LV filling pressure and no aortic stenosis.
RECOMMENDATIONS
1. Continued primary prevention of coronary artery disease.
2. Should patient have recurrent episodes concerning for microvascular angina, could consider treatment with calcium channel rudy and/or beta rudy empirically.
Copy to: Dr. Ramírez Han MD (child welfare manager); CELIA Torres (PCP)
Signed: Adonay Ervin MD, PhD
== END 2025-03-31 19:40 | disposition home or self-care (01) | DRG 287 ==
LOC: CATH-IN 13:21
PROVIDERS: Physician Assistant; Student in an Organized Health Care Education/Training Program; ADMITTING PHYSICIAN Student in an Organized Health Care Education/Training Program; CONSULT PHYSICIAN Internal Medicine Cardiovascular Disease; EMERGENCY PHYSICIAN Student in an Organized Health Care Education/Training Program; FAMILY PHYSICIAN Nurse Practitioner
PROC: 4A023N7 Measurement of Cardiac Sampling and Pressure, Left Heart, Percutaneous Approach (ICD-10-PCS; 2025-03-31)
PROC: B2111ZZ Fluoroscopy of Multiple Coronary Arteries using Low Osmolar Contrast (ICD-10-PCS; 2025-03-31)
DX: I25.10 Atherosclerotic heart disease of native coronary artery without angina pectoris (principal); E78.00 Pure hypercholesterolemia, unspecified; E86.0 Dehydration; K21.9 Gastro-esophageal reflux disease without esophagitis
CPT/HCPCS: 71046; 80053; 83735; 84484; 85025; 93005; 93306; 93458; 99152; 99153; 99285; C1769; C1894; Q9967

== ENCOUNTER 2025-04-01 13:13 | Emergency (ER) | payer BC, SELFPAY ==
[2025-04-01 13:20] VITALS: BP 124/84
[2025-04-01 13:39] LABS: Hematocrit 41.9 % (37.0-47.0); Hemoglobin 14.0 g/dL (12.0-16.0); Mean Corp Hgb Conc. 33.4 g/dL (33.0-37.0); Mean Corpuscular Volume 91.3 fL (81.0-99.0); Nucleated Red Blood Cells % 0 %; Platelet Count 257 10^3/uL (130-400); Red Cell Dist. Width 12.2 % (11.5-14.5)
[2025-04-01 13:53] LABS: ALT (SGPT) 14 U/L (0-35); AST (SGOT) 21 U/L (14-36); Albumin 4.9 g/dl (3.5-5.0); Alkaline Phosphatase 57 U/L (38-126); Blood Urea Nitrogen 13 mg/dl (7-17); Calcium 10.2 mg/dl (8.4-10.2); Carbon Dioxide 29 mmol/L (22-30); Chloride 102 mmol/L (98-107); Glucose 150 mg/dl (70-99); Potassium 4.2 mmol/L (3.5-5.1); Sodium 137 mmol/L (135-145); Total Protein 7.6 g/dl (6.3-8.2); eGFR > 60.00
[2025-04-01 14:10] LABS: Troponin I 0.064 ng/ml
--- NOTE | 2025-04-01 15:10 | ED.GENMED ---
History of Present Illness
General
Chief Complaint: Chest Pain
Source: patient
Exam Limitations: none
Time Seen by Provider: 04/01/25 14:46
History of Present Illness
History of Present Illness:
59-year-old female with history of hyperlipidemia presents with chest pressure onset 11 AM this morning this was preceded by numbness inside of her nose and the back of her throat. This is similar to what happened yesterday which prompted her to go
to the [facility] yesterday. She had a left heart cath yesterday. No significant obstructive disease however there was some evidence of potential microvascular issues. She felt well after the cath yesterday but symptoms developed again throughout
the night. She denies any pleuritic discomfort. No leg swelling or calf pain. No recent travel or surgery. At the time of my exam she currently does not have any chest discomfort
Past History
Past History
ED Past Medical History: Other (Vestibular migraines, GERD)
ED Past Surgical History: None
Patient has exhibited threatening behavior?: No
Social History
Tobacco: Non-smoker
Alcohol: Occasional
Drug: None
Personal:
Employment: Employed
Family History
Family History: Other
Phy Exam
Physical Exam
Physical Exam:
General: Well-appearing female no acute respiratory distress
HEENT: Normal cephalic atraumatic heart: Regular rate and rhythm
Lungs: Clear no wheeze
Abdomen is soft nontender nondistended extremities: No cyanosis or edema
Skin warm no rash
Scores
Heart Score for Chest Pain Patients
STEMI patient?: No
History: Slightly or Non-Suspicious
ECG: Normal
Age: >45 - <65 years
Risk Factors: 1 or 2 Risk Factors
Troponin: >1 - <3 x Normal Limit
Heart Score for Chest Pain Patients: 3
Heart Score Risk: 2.5% MACE over next 6 weeks
Course
Orders/Labs/Results
Orders:
Orders
04/01/25 13:13
Electrocardiogram (*1) Urgent
Reason for Study: Chest Pain
04/01/25 13:14
EKG- Treatment ONCE
04/01/25 13:30
Complete Blood Count/With Diff Urgent
Comprehensive Metabolic Panel Urgent
Troponin I Urgent
04/01/25 15:36
COVID-19 Antigen Urgent
Source: Nasal Swab
04/01/25 16:20
Troponin I Urgent
04/01/25 16:21
ECG [Electrocardiogram (*1)] Urgent
Reason for Study: Chest Pain
Other Reason for Exam: serial troponin
EKG- Treatment ONCE
04/01/25 17:39
Diltiazem Sustained Release [Cardizem Sr] 120 mg PO NOW STA
Abnormal Lab Results
04/01/25 04/01/25
13:30 16:20
MPV 11.5 H fL
(7.4-10.4)
Glucose 150 H mg/dl
(70-99)
Troponin I 0.064 H* ng/ml 0.054 H* ng/ml
04/01/25 13:30
04/01/25 13:30
Vital Signs
Initial and Last Documented VS:
Initial Vital Signs
Temp Pulse Resp BP Pulse Ox
98.8 F 95 20 124/84 99
04/01/25 13:20 04/01/25 13:20 04/01/25 13:20 04/01/25 13:20 04/01/25 13:20
Last Documented Vital Signs
Temp Pulse Resp BP Pulse Ox
98.8 F 95 20 124/84 99
04/01/25 13:20 04/01/25 13:20 04/01/25 13:20 04/01/25 13:20 04/01/25 15:13
MDM/Problems Addressed
Differential Diagnosis Includes:
Chest discomfort preceded by numbness in the nose and the posterior throat. Similar symptoms yesterday
EKG personally interpreted by me demonstrates sinus rhythm with rate of 92 no ischemic changes troponin today is 0.64 but patient did have a heart cath yesterday. Currently she is pain-free. Do not suspect PE as she has no risk factors pain is not
pleuritic etc. Contacted cardiology
*Pulse Oximetry
SaO2: 99
Oxygen Mode of Delivery: Room air
Patient hypoxic: no
*Critical Care Note
Total Time (30-74mins, 75-104mins- exclusive of procedures): Not Applicable
Update Note
Update Note:
Initial troponin 0.064. Repeat troponin 0.054. Patient evaluated by cardiology. No indication for any further cardiac intervention. They did opt to start on calcium channel rudy. First dose of diltiazem was ordered here. She will follow-up
with her profiler operator but no indication for admission. Stable for discharge
Decreasing troponin leads me to believe that the elevated troponin is likely from the procedure itself yesterday not from acute ischemic injury
ED Attending Note
-
Portions of this chart may have been created with voice recognition software.� Occasional wrong word or��sound alike� substitutions may have occurred due to the inherent limitations of voice recognition software.
Discharge Plan
Departure
Patient Disposition: Home (Routine Discharge)
Date of Disposition: 04/01/25
Time of Disposition: 18:13
Patient with high blood pressure during this ER visit?: No
Discharge Problem:
Chest pain
Instructions: Chest Pain CBC Follow Up
Prescriptions:
No Action
rosuvastatin [Crestor] 5 mg Tablet
5 mg PO QPM
diazepam [Valium] 5 mg tablet
5 mg PO BIDPRN PRN (Reason: Sleep)
Nurtec ODT 75 mg tablet,disintegrating
75 mg PO Q48H
acetaminophen [Tylenol Extra Strength] 500 mg Tablet
1,000 mg PO Q6HPRN PRN (Reason: mild pain)
Referrals:
Roma Sue, AQUATIC HABITAT BIOLOGIST [Family Provider, General]
Activity Restrictions/Additional Instructions:
Continue medication as directed by cardiology. Follow-up with cardiology. Return if worse otherwise
Interventions
Interventions:
*Risk Screen - Suicide Last Done: 04/01/25 13:20
*General Assessment Last Done: 04/01/25 13:20
*Neglect/Abuse Screening Last Done: 04/01/25 13:20
Discharge Date and Time
Print Language: KAZAKH
--- NOTE | 2025-04-01 15:57 | CON.CAR ---
Addendum entered and electronically signed by Giulia Horton MD 04/01/25 18:30:
I saw and evaluated the patient, and I provided the substantive portion of the medical decision making.
I reviewed and agree with the note by Imani YANG and it accurately reflects our care.
I personally performed the medical decision making of the this encounter and my assessment and plan is below:
59-year-old female who was just discharged yesterday after catheterization for her current presenting complaints. Catheterization showed normal macro vasculature with possible microvascular disease. She states she is still having ongoing sensation
of a numb internal nares bilaterally with a sense that her throat is closing and swollen. She will then get associated numbness in her lips and at times pressure in her chest. This has been constant since discharge. On exam she appears well in no
apparent distress with a regular rate and rhythm with a normal S1-S2 no murmur rubs or gallops were appreciated lungs were clear to auscultation bilaterally. EKG showed normal sinus rhythm with a septal infarct pattern no change from prior.
Troponins were 0.064 and 0.054 after over 24 hours of chest pain and associated somatic symptoms.
Assessment:
Multiple somatic complaints including numb nests in the internal nares with throat burning and a sense of closure paresthesias in her lips with chest pain: Differential diagnosis is broad. While microvascular disease is present this may not be the
cause of her symptoms. I explained that we will treat her microvascular disease but I suspect that symptoms are not from this etiology. I recommended she trial a PPI again as she has reported GERD in the past. Additionally, symptoms could be
linked to an allergic rhinitis and I recommend she discuss these possibilities with her primary care doctor.
Microvascular disease: Start aspirin 81 mg a day, she is already on a statin. 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 This is not a bad
consideration. Will start diltiazem 120 mg daily. She will follow-up with her typical truckman Dr. Han. Okay for discharge.
Original Note:
Consultation
Consultation Request
Date/Time Consultation Requested: 04/01/2025 15:00
Date/Time Consultation Performed: 04/01/2025 16:00
Requesting Provider: Tai Henderson PA-C
Performing Provider: CELIA Holloway for Dr. Horton
Reason for Consultation: Abnormal troponin
Medical History
-
Chief Complaint: Chest pain
History of Present Illness:
Skylar Serna is a 5-year-old female (known to Dr. Han, her primary truckman), with dyslipidemia, elevated LP(a), GERD, vestibular migraine and cervical spine pain who presented to the emergency department chief complaint of chest pain. She
had a cardiac catheterization yesterday as she had an abnormal EKG and chest pain. Cardiac catheterization did not have any obstructive coronary artery disease. She did have slow flow angiographically in the S1 and S2 possibly risk control field representative high
microvascular resistance. She presents today with severe chest pressure. Episode lasting hours. It is either a stabbing pain or a heavy pressure. This presented itself while she was sitting. This was preceded by numbness in her nose and the back
of her throat. She also had associated numbness on her lips. This is fairly similar to her presentation prior to her cardiac catheterization yesterday. At the time of this consultation, she was chest pain free.
Past Medical History
Past Medical History: GERD, Hypercholesterolemia and Other (Cervical spine disease, vestibular migraines)
Past Surgical History: and Orthopedic
Social History
Tobacco: Non-Smoker
Alcohol: Occasional
Drug: None
Personal:
Living: With Family
Employment: Employed (School nurse)
Family History
Family History: Reviewed & Not Pertinent (No premature CAD. No SCD)
Allergies / Home Medications
Allergy/AdvReac Type Severity Reaction Status Date / Time
erenumab-aooe (From Aimovig Allergy Unknown Verified 04/01/25 13:25
Autoinjector)
etodolac Allergy Swelling-tongue, Verified 04/01/25 13:25
lips
lamotrigine (From Lamictal) Allergy Swelling-tongue, Verified 04/01/25 13:25
lips
methylprednisolone (From Allergy pt denies Verified 04/01/25 13:25
Solu-Medrol)
metoclopramide (From Reglan) Allergy pt denies Verified 04/01/25 13:25
�Medication �Instructions �Recorded �Confirmed �Type
diazepam 5 mg tablet (Valium) 5 mg PO BIDPRN PRN Sleep 03/31/25 04/01/25 History
rimegepant 75 mg disintegrating 75 mg PO Q48H 03/31/25 04/01/25 History
tablet (Nurtec ODT)
rosuvastatin 5 mg tablet (Crestor) 5 mg PO QPM High Cholesterol 03/31/25 04/01/25 History
acetaminophen 500 mg tablet 1,000 mg PO Q6HPRN PRN mild pain 04/01/25 04/01/25 History
(Tylenol Extra Strength)
Review of Systems
-
History Source: Patient
All other systems: Negative unless noted
Constitutional: No Symptoms
EENT: No Symptoms
Respiratory: No Symptoms
Cardiac: No Symptoms
Abdomen/GI: No Symptoms
: No Symptoms
Musculoskeletal: No Symptoms
Skin: No Symptoms
Neurological: No Symptoms
Endocrine: No Symptoms
Hematologic/Lymphatic: No Symptoms
Physical Exam
Vital Signs
Temp Pulse Resp BP Pulse Ox
98.8 F 95 20 124/84 99
04/01/25 13:20 04/01/25 13:20 04/01/25 13:20 04/01/25 13:20 04/01/25 15:13
Lab Results
04/01/25 13:30
04/01/25 13:30
Troponin I 0.064 ng/ml H* 04/01/25 13:30
Physical Exam
General: Well Developed, Well Nourished, No Apparent Distress and Comfortable
HEENT: Normocephalic, Anicteric and Moist Mucous Membranes
Respiratory: Clear and Non Labored Respirations
Cardiac: S1/S2 and Regular Rhythm
Breast: Deferred by me
GI: Soft, Non Tender, Non Distended and Normal Bowel Sounds
Rectal: Deferred by Provider
Genito-urinary: No Costovertebral Tender
Musculoskeletal: No Clubbing, No Cyanosis and No Edema
Skin: Warm and Dry
Neuro: AO x 3
Hematologic/Lymphatic: No Lymphadenopathy
Psych: Calm
Impression / Plan
-
I/P: 59F with dyslipidemia, elevated LP(a), GERD, vestibular migraine and cervical spine pain who presented to the emergency department chief complaint of chest pain
Primary truckman: Dr. Han
Chest pain
- Episode lasting hours
- Cardiac catheterization yesterday with angiographically slow flow in the S1 and S2 possibly represent of high microvascular resistance
- EKG stable
- Start lisinopril 2.5 mg daily & ASA 81mg daily
Abnormal troponin, nonischemic myocardial injury in the setting of recent cardiac procedure
- Trend to peak, currently 0.064
- Currently chest pain-free
Dyslipidemia, continue current dose of rosuvastatin
Data Reviewed
-
EKG: Report Reviewed by me
Radiology: Report Reviewed by me
Medical Tests (Nuc Med, Echo etc): Report Reviewed by me
Labs: Labs Reviewed by me
Old Records: Reviewed
[2025-04-01 16:00] LABS: COVID-19 Antigen Negative (Negative)
[2025-04-01 16:58] LABS: Troponin I 0.054 ng/ml
[2025-04-01 18:34] VITALS: BP 113/91
[2025-04-01] MEDS: CARDIZEM SR 120 MG PO (18:50)
--- NOTE | 2025-04-04 10:20 | CON.CAR ---
Consultation
Consultation Request
Date/Time Consultation Requested: April 04, 2025 9:27 AM
Date/Time Consultation Performed: 04/04/2025 10:30 AM
Requesting Provider: Emergency room
Performing Provider: Edi Farris
Reason for Consultation: Chest pain
Medical History
-
Chief Complaint: Chest pain
History of Present Illness:
59-year-old female with past medical history of dyslipidemia, elevated LP(a), GERD, vestibular migraines and cervical spine pain who comes into the emergency room with chest pain. She tells me that it started this morning. She had 2 episodes. The
first was tolerable, however, the second was severe. She tells me that because of the severity she presented to the emergency room. She did receive a nitroglycerin with relief. Her ECG is normal and she had heart coronary angiography just a few
days ago that had no significant obstructive coronary artery disease. I discussed with her that this may take some time for things to resolve. We will stop the diltiazem and start lisinopril 5 mg. She does have close follow-up in about 2 weeks.
Past Medical History
Past Medical History: GERD, Hypercholesterolemia and Other (Cervical spine disease, vestibular migraines)
Past Surgical History: and Orthopedic
Social History
Tobacco: Non-Smoker
Alcohol: Occasional
Drug: None
Personal:
Living: With Family
Employment: Employed (School nurse)
Family History
Family History: Reviewed & Not Pertinent (No premature CAD. No SCD)
Allergies / Home Medications
Allergy/AdvReac Type Severity Reaction Status Date / Time
erenumab-aooe (From Aimovig Allergy Unknown Verified 04/04/25 09:16
Autoinjector)
etodolac Allergy Swelling-tongue, Verified 04/04/25 09:16
lips
lamotrigine (From Lamictal) Allergy Swelling-tongue, Verified 04/04/25 09:16
lips
methylprednisolone (From Allergy pt denies Verified 04/04/25 09:16
Solu-Medrol)
metoclopramide (From Reglan) Allergy pt denies Verified 04/04/25 09:16
�Medication �Instructions �Recorded �Confirmed �Type
diazepam 5 mg tablet (Valium) 5 mg PO BIDPRN PRN Sleep 03/31/25 04/01/25 History
rimegepant 75 mg disintegrating 75 mg PO Q48H 03/31/25 04/01/25 History
tablet (Nurtec ODT)
rosuvastatin 5 mg tablet (Crestor) 5 mg PO QPM High Cholesterol 03/31/25 04/01/25 History
acetaminophen 500 mg tablet 1,000 mg PO Q6HPRN PRN mild pain 04/01/25 04/01/25 History
(Tylenol Extra Strength)
diltiazem HCl 120 mg 120 mg PO DAILY #30 caps 04/01/25 Rx
capsule,extended release 24 hr
(Cartia XT)
Review of Systems
-
All other systems: Negative unless noted
Physical Exam
Vital Signs
Temp Pulse Resp BP Pulse Ox
98.8 F 76 16 113/91 100
04/01/25 13:20 04/01/25 18:34 04/01/25 18:34 04/01/25 18:34 04/01/25 18:34
Lab Results
04/01/25 13:30
04/01/25 13:30
Troponin I 0.054 ng/ml H* 04/01/25 16:20
Physical Exam
General: Well Developed, Well Nourished and No Apparent Distress
HEENT: Normocephalic
Respiratory: Clear and Non Labored Respirations
Cardiac: S1/S2 and Regular Rhythm
GI: Soft
Skin: Warm and Dry
Neuro: AO x 3
Psych: Calm
Impression / Plan
-
I/P: 59F with dyslipidemia, elevated LP(a), GERD, vestibular migraine and cervical spine pain who presented to the emergency department chief complaint of chest pain
Primary field laboratory operator: Dr. Han
Chest pain
- Cardiac catheterization a little less than a week ago with angiographically slow flow in the S1 and S2 possibly represent of high microvascular resistance
- EKG stable
- Start lisinopril 5 mg daily stop Cardizem
Abnormal troponin, nonischemic myocardial injury in the setting of possible microvascular dysfunction
- Troponin was 0.028
Dyslipidemia, continue current dose of rosuvastatin
Data Reviewed
-
EKG: Tracing Personally Visualized and interpreted (sr) and Discussed with Physician
Radiology: Other (Coronary angiography reviewed and discussed with physician and family)
Medical Tests (Nuc Med, Echo etc): Discussed with Physician
Labs: Labs Reviewed by me
== END 2025-04-01 18:50 | disposition home or self-care (01) ==
LOC: EMR 13:13
PROVIDERS: Physician Assistant; Student in an Organized Health Care Education/Training Program; EMERGENCY PHYSICIAN Emergency Medicine; FAMILY PHYSICIAN Nurse Practitioner
DX: R07.89 Other chest pain (principal); E78.00 Pure hypercholesterolemia, unspecified; E78.41 Elevated Lipoprotein(a); K21.9 Gastro-esophageal reflux disease without esophagitis; Z79.899 Other long term (current) drug therapy; Z83.49 Family history of other endocrine, nutritional and metabolic diseases
CPT/HCPCS: 99283; 80053; 84484; 85025; 87811; 93005

== ENCOUNTER → 2025-04-04 09:04 | Emergency (ER) | payer BC, SELFPAY ==
[2025-04-04 09:12] VITALS: BP 118/82
--- NOTE | 2025-04-04 09:14 | ED.GENMED ---
History of Present Illness
General
Chief Complaint: Chest Pain
Source: patient
Exam Limitations: none
Time Seen by Provider: 04/04/25 09:06
Nursing documentation reviewed up to this point in time: agreed with
History of Present Illness
History of Present Illness:
Note:
CHIEF COMPLAINT(S)
Chest pain.
HISTORY OF PRESENT ILLNESS
The patient is a 59-year-old female presenting with chest pain. The symptoms began at approximately 8:30 AM. The patient reports waking with discomfort at around 7 AM, and it worsened to noticeable chest pain by 8:30 AM. She states that this episode
feels similar to previous episodes. The ambulance staff provided nitroglycerin en route to the hospital, which offered some relief. The patient mentioned a previous episode where cardiac tests, including an electrocardiogram, did not show ischemia
at the time, but she is aware that coronary vasospasm can sometimes mimic ischemia. The patient expresses concern about experiencing a heart attack, although she acknowledges tolerating some of the pain.
PHYSICAL EXAM
General: Alert, no acute distress.
Skin: Warm, dry.
Head: Normocephalic, atraumatic.
Neck: Supple, trachea midline.
Eye, Ears, Nose, and Throat: Oral mucosa moist.
Cardiovascular: Normal peripheral perfusion, No edema.
Respiratory: Respirations are non-labored.
Gastrointestinal: Abdomen nondistended.
Back: Normal range of motion, Normal alignment.
Musculoskeletal: Normal range of motion, normal strength.
Neurological: Alert and oriented to person, place, time, and situation, No focal neurological deficit observed.
Psychiatric: Cooperative, appropriate mood & affect.
PLAN
An assessment of the patients cardiac biomarkers, specifically troponin levels, is planned to evaluate for myocardial damage. The patient will be closely monitored, and repeat administration of nitroglycerin may be considered to manage symptoms of
chest pain.
DIFFERENTIAL DIAGNOSIS
The Differential Diagnosis includes, in no particular order and is not limited to:
1. Myocardial Infarction
2. Cardiac Ischemia
3. Coronary Vasospasm (Prinzmetals Angina)
4. Gastroesophageal Reflux Disease (GERD)
5. Pulmonary Embolism
6. Pericarditis
7. Aortic Dissection
8. Anxiety/Panic Attack
9. Musculoskeletal Chest Pain
10. Costochondritis
CARE-UPDATE
04/04/25 - 15:51
Discussed case with cardiology; recommendation to initiate lisinopril and discontinue diltiazem. Patient evaluated by Dr. Farris with no evident distress.
EKG
My independent EKG interpretation is:
- Time of EKG: Not provided
- Rhythm: Normal sinus rhythm
- Heart Rate: 84 bpm
- LA Interval: Normal
- QRS Duration: Normal
- QT Interval: Normal
- [place]: Normal
- Abnormalities Observed: None
Disposition:
SUMMARY OF ENCOUNTER
The patient is a 59-year-old female who presented to the emergency department with chest pain beginning at approximately 8:30 AM. The pain started with discomfort upon waking at about 7 AM and intensified to noticeable chest pain by 8:30 AM. She had
previously experienced similar episodes. The ambulance staff administered nitroglycerin en route to offer some relief. The patient expressed concern about a potential heart attack, although she has been tolerating some pain. On evaluation, no acute
distress was noted, and cardiac tests showed normal findings. The patients troponin levels were negative, reducing the likelihood of myocardial infarction.
DISPOSITION
Discharge.
ASSESSMENT
The chest pain could be due to coronary vasospasm or another non-cardiac etiology given the normal cardiac biomarkers and EKG results.
MANAGEMENT OF THE PATIENTS CARE WAS DISCUSSED WITH
Discussed case with cardiology, who recommended starting lisinopril and discontinuing diltiazem.
INDEPENDENT REVIEW OF LABS AND INTERPRETATION OF TESTS
My independent EKG interpretation is that the rhythm is normal sinus rhythm with a heart rate of 84 bpm, normal LA, QRS, QT intervals, and normal axis with no abnormalities observed.
PLAN
An assessment of the patients cardiac biomarkers, specifically troponin levels, showed no signs of myocardial damage, which supports discharge. Begin lisinopril and discontinue diltiazem as per cardiology recommendation.
MEDICAL DECISION MAKING
-Complexity of Data Reviewed: Chronic conditions affecting care include potential coronary vasospasm and previous chest pain episodes. Differential diagnosis: Myocardial Infarction, Cardiac Ischemia, Coronary Vasospasm (Prinzmetals Angina),
Gastroesophageal Reflux Disease (GERD), Pulmonary Embolism, Pericarditis, Aortic Dissection, Anxiety/Panic Attack, Musculoskeletal Chest Pain, Costochondritis.
-Data:
Category 1
The following testing was considered but not selected: no need for imaging like CT or Doppler studies due to negative troponin and reassuring EKG results.
Category 3
Discussion of management with cardiology led to changes in medication.
-Risk: Consideration of Admission/Observation: Escalation of care including admission/observation was considered given the complexity and risk of the patients presenting complaint, exam findings, and/or their underlying comorbidities. However,
ultimately, I feel the patient is safe for outpatient management with close follow-up. Reasoning: Work-up reassuring, does not reveal any acute life/organ-threatening processes, patients symptoms well controlled upon reevaluation, reexamination is
reassuring, vitals are stable, patient agreeable with discharge, reliable for follow-up.
DIAGNOSIS
1. Chest Pain, Unspecified (R07.9)
MEDICATION RECONCILIATION
Lisinopril to be initiated as per cardiology recommendation. Discontinue diltiazem.
Past History
Past History
ED Past Medical History: Other (Vestibular migraines, GERD)
ED Past Surgical History: None
Patient has exhibited threatening behavior?: No
Social History
Tobacco: Non-smoker
Alcohol: Occasional
Drug: None
Personal:
Employment: Employed
Family History
Family History: Other
Phy Exam
Physical Exam
Physical Exam:
.
Scores
Heart Score for Chest Pain Patients
STEMI patient?: No
History: Slightly or Non-Suspicious
ECG: Normal
Age: >45 - <65 years
Risk Factors: 1 or 2 Risk Factors
Troponin: </= Normal Limit
Heart Score for Chest Pain Patients: 2
Heart Score Risk: 2.5% MACE over next 6 weeks
Course
Orders/Labs/Results
Orders:
Orders
04/04/25 09:11
IV Insert/Care/Rem.- Treatment PRN
04/04/25 09:12
Cardiac Monitoring- Treatment ONCE
04/04/25 09:13
EKG [Electrocardiogram (*1)] Urgent
Reason for Study: Chest Pain
EKG- Treatment ONCE
EKG- Treatment ONCE
04/04/25 09:14
Electrocardiogram (*1) Urgent
04/04/25 09:22
Nitroglycerin Sublingual [Nitrostat (Sublingual)] 0.4 mg SL NOW STA
04/04/25 09:23
Nitroglycerin Sublingual [Nitrostat (Sublingual)] 0.4 mg .ROUTE .STK-MED ONE
04/04/25 09:32
Complete Blood Count/With Diff Urgent
Comprehensive Metabolic Panel Urgent
Troponin I Urgent
Abnormal Lab Results
04/04/25
09:32
MPV 11.3 H fL
(7.4-10.4)
04/04/25 09:32
04/04/25 09:32
Vital Signs
Initial and Last Documented VS:
Initial Vital Signs
Pulse Resp BP Pulse Ox
81 16 118/82 100
04/04/25 09:12 04/04/25 09:12 04/04/25 09:12 04/04/25 09:12
Last Documented Vital Signs
Pulse Resp BP Pulse Ox
79 8 116/83 100
04/04/25 10:00 04/04/25 10:00 04/04/25 10:00 04/04/25 10:00
*Pulse Oximetry
SaO2: 100
Oxygen Mode of Delivery: Room air
Patient hypoxic: no
*Critical Care Note
Total Time (30-74mins, 75-104mins- exclusive of procedures): Not Applicable
ED Attending Note
-
Portions of this chart may have been created with voice recognition software.� Occasional wrong word or��sound alike� substitutions may have occurred due to the inherent limitations of voice recognition software.
Discharge Plan
Departure
Patient Disposition: Home (Routine Discharge)
Date of Disposition: 04/04/25
Time of Disposition: 10:33
Patient with high blood pressure during this ER visit?: No
Condition: Good
Discharge Problem:
Chest pain
Instructions: Chest Pain
Prescriptions:
New
lisinopril 5 mg tablet
5 mg PO DAILY Qty: 30 0RF
No Action
rosuvastatin [Crestor] 5 mg Tablet
5 mg PO QPM
diazepam [Valium] 5 mg tablet
5 mg PO BIDPRN PRN (Reason: Sleep)
Nurtec ODT 75 mg tablet,disintegrating
75 mg PO Q48H
acetaminophen [Tylenol Extra Strength] 500 mg Tablet
1,000 mg PO Q6HPRN PRN (Reason: mild pain)
diltiazem HCl [Cartia XT] 120 mg capsule,extended release 24hr
120 mg PO DAILY Qty: 30 0RF
Referrals:
Roma Sue CRNP [Family Provider, General]
Ramírez Han MD [Active, Cardiology] - Call in 1-3 days for appt
Stand Alone Forms: Return to Work
Interventions
Interventions:
*Risk Screen - Suicide Last Done: 04/04/25 09:11
*General Assessment Last Done: 04/04/25 09:11
*Neglect/Abuse Screening Last Done: 04/04/25 09:11
*ED- Fall Risk Assessment Last Done: 04/04/25 09:11
ED- Cardiac Assessment Last Done: 04/04/25 09:11
Discharge Date and Time
Print Language: DANISH
[2025-04-04] MEDS: NITROSTAT (SUBLINGUAL) 0.4 MG SL (09:25)
[2025-04-04 09:46] LABS: Hematocrit 40.5 % (37.0-47.0); Hemoglobin 13.7 g/dL (12.0-16.0); Mean Corp Hgb Conc. 33.8 g/dL (33.0-37.0); Mean Corpuscular Volume 89.6 fL (81.0-99.0); Nucleated Red Blood Cells % 0 %; Platelet Count 247 10^3/uL (130-400); Red Cell Dist. Width 12.1 % (11.5-14.5)
--- NOTE | 2025-04-04 09:51 | EDRN ---
Patient requested to take personal Tylenol that is rapid release. States it works better than the hospital's. Dr. Fofana approved and patient took 1000mg Tylenol PO from her personal supple.
Dr. Farris from cardiology at the bedside to evaluate and speak with the patient.
[2025-04-04 10:00] VITALS: BP 116/83
[2025-04-04 10:03] LABS: ALT (SGPT) 12 U/L (0-35); AST (SGOT) 20 U/L (14-36); Albumin 4.6 g/dl (3.5-5.0); Alkaline Phosphatase 66 U/L (38-126); Blood Urea Nitrogen 15 mg/dl (7-17); Calcium 10.1 mg/dl (8.4-10.2); Carbon Dioxide 28 mmol/L (22-30); Chloride 106 mmol/L (98-107); Glucose 96 mg/dl (70-99); Potassium 3.9 mmol/L (3.5-5.1); Sodium 140 mmol/L (135-145); Total Protein 7.3 g/dl (6.3-8.2); eGFR > 60.00
[2025-04-04 10:11] LABS: Troponin I 0.024 ng/ml
--- NOTE | 2025-04-04 10:16 | EDRN ---
Cardiology at the bedside to review lab results
== END | disposition home or self-care (01) ==
LOC: EMR 09:04
PROVIDERS: EMERGENCY PHYSICIAN Emergency Medicine; FAMILY PHYSICIAN Nurse Practitioner
DX: R07.9 Chest pain, unspecified (principal)
CPT/HCPCS: 99284; 80053; 84484; 85025; 93005

== ENCOUNTER → 2025-04-19 16:42 | Outpatient (REF) | payer BC, SELFPAY | LOC: WDC 16:42 | PROVIDERS: ATTENDING PHYSICIAN Obstetrics & Gynecology; FAMILY PHYSICIAN Nurse Practitioner | DX: Z12.31 Encounter for screening mammogram for malignant neoplasm of breast (principal) | CPT/HCPCS: 77063; 77067 ==

== ENCOUNTER 2025-05-02 06:24 | Day surgery (SDC) | payer BC, SELFPAY | END 2025-05-02 14:46 | disposition home or self-care (01) | LOC: GI 06:24 | PROVIDERS: ATTENDING PHYSICIAN Internal Medicine Gastroenterology; FAMILY PHYSICIAN Nurse Practitioner | DX: R12 Heartburn (principal); R07.89 Other chest pain; K29.50 Unspecified chronic gastritis without bleeding | CPT/HCPCS: 43239; 88305; 88342 ==